=== PATIENT | male | born 1955 | race Caucasian/White ===

== ENCOUNTER 2017-11-19 11:55 | Inpatient (IN) | payer BC ==
[2017-11-19] MEDS ORDERED: Lidocaine 1% (PF) 30 ML VIAL ONE (12:19)
[2017-11-19 12:21] LABS: Mean Corpuscular HGB CONC 34.4 g/dL (32.0-36.0); Mean Corpuscular Hemoglobin 29.3 pg (27.0-31.0); Mean Corpuscular Volume 85.1 fl (80.0-94.0); Mean Platelet Volume 7.1 fL (7.4-10.4); Platelet Count 377 thou/uL (130-400); RBC Distribution Width 11.4 % (11.5-14.5); Red Blood Cell (RBC) Count 5.79 mill/uL (4.70-6.10); White Blood Cell (WBC) Count 12.8 thou/uL (4.8-10.8)
[2017-11-19] MEDS ORDERED: Diazepam 5 MG TAB ONE (12:24)
[2017-11-19 12:27] LABS: PTT 29.2 SEC (22.9-36.1); Prothrombin Time 13.1 SEC (12.0-14.7)
[2017-11-19 12:40] LABS: ALT (SGPT) 26 U/L (8-55); AST (SGOT) 19 U/L (5-34); Albumin 4.4 g/dL (3.5-5.0); Alkaline Phosphatase 95 U/L (40-150); Anion Gap 12 mmol/L (10-20); BUN (Urea Nitrogen) 14 mg/dL (8.4-25.7); Bilirubin, Total 0.6 mg/dL (0.2-1.2); Calc. Creatinine Clearance 0 mL/min (70-130); Calcium 9.6 mg/dL (7.8-10.44); Carbon Dioxide 29 mmol/L (22-29); Cardiac Risk 5.1 (Less than 4.5); Chloride 98 mmol/L (98-107); Cholesterol 197 mg/dl (< 200 Desired); Estimated GFR-MDRD 66; Globulin 3.4 g/dL (2.4-3.5); Glucose 122 mg/dL (70-105); HDL Cholesterol 39 mg/dL (>60 Neg Risk); LDL Cholesterol, Calculated 107 mg/dL; Potassium 4.1 mmol/L (3.5-5.1); Protein, Total 7.8 g/dL (6.0-8.3); Sodium 135 mmol/L (136-145); Triglycerides 255 mg/dL (Less than 150)
[2017-11-19 12:41] LABS: Lymphocytes 20 % (21-51); Monocytes 7 % (0-10); Reactive Lymphocytes 6 % (0-10)
[2017-11-19] MEDS ORDERED: Midazolam HCl 2 mg/2 ml Vial ONE (12:49)
[2017-11-19] MEDS ORDERED: Fentanyl 250 MCG/5 ML VIAL ONE (12:49)
[2017-11-19] MEDS ORDERED: Heparin 10,000 UNITS/1 ML VIAL ONE (12:51)
[2017-11-19] MEDS ORDERED: Nitroglycerin 100MG/250ML BOT 250 ML ONE (12:51)
[2017-11-19] MEDS ORDERED: Verapamil 5 MG/2 ML VIAL ONE (12:51)
[2017-11-19 13:17] LABS: Band 1 % (5-11)
[2017-11-19 13:18] LABS: Neutrophil 66 % (42-75)
[2017-11-19 13:19] LABS: PLT Morphology Comment Appears Adequate
[2017-11-19 13:20] LABS: RBC Morphology Normal
[2017-11-19] MEDS ORDERED: Acetaminophen/Codeine 30-300mg Tablet PO PRN ×2 (14:46)
[2017-11-19] MEDS ORDERED: Nitroglycerin 0.4 MG TAB (25 Tab Bottle) SL PRN (14:46)
[2017-11-19] MEDS ORDERED: traMADol HCl 50 MG TAB PO PRN (14:46)
[2017-11-19] MEDS ORDERED: Sodium Chloride 0.9% 1,000 ML IV SCH (14:46)
[2017-11-19] MEDS ORDERED: Iopamidol 370 76% 100 ML VIAL ONE (16:46)
[2017-11-19 19:45] VITALS: BMI 28.6
--- NOTE | 2017-11-19 22:07 | CON ---
DATE OF CONSULTATION: 11/19/2017 REQUESTING PHYSICIAN: Oscar Robin M.D. PRIMARY PHYSICIAN: Shay Llanos M.D. CHIEF COMPLAINT: Asymptomatic ectopy. HISTORY OF PRESENT ILLNESS: The patient is a 62-year-old white man with hypertension. On a recent checkup he was noted to have frequent ectopy and an EKG demonstrated Q-waves and the absence of R waves in leads V2 through V6 consistent with an anterior myocardial infarction in the past. In retrospect, the patient has had some vague chest pain associated with some shortness of breath on exertion that has been going on for about 6 months, but he does not remember any distinct episode of severe pain that even in retrospect would suggest an infarction that he had mistaken for some other problem. Outpatient stress testing suggested an LVEF of less than 20% associated with scar and cardiac catheterization today demonstrates severe three-vessel coronary artery disease and confirms severely reduced LV function. 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 The patient denies any diabetes. HOME MEDICATIONS: Losartan 100 mg/hydrochlorothiazide 12.5 mg once a day, baby aspirin. He has recently been started on sublingual nitroglycerin p.r.n. ALLERGIES: He denies any medical allergies. SOCIAL HISTORY: He has never smoked. FAMILY HISTORY: Significant for his father having had coronary artery disease manifest in his 50s. REVIEW OF SYSTEMS: Negative for any eye, speech, facial, or extremity symptoms to suggest TIAs. Negative for any orthopnea. Negative for any PND. Negative for any change in some minimal nocturia. PHYSICAL EXAMINATION: GENERAL: He is a healthy-appearing man in no distress. VITAL SIGNS: Heart rate is 94, blood pressure 119/80, height is 6 feet tall, weight is 214 pounds. HEENT: He has no xanthelasma. NECK: No JVD, no carotid bruits. LUNGS: Chest is clear to auscultation. CARDIOVASCULAR: He has regular rate and rhythm without murmur or gallop. ABDOMEN: Soft and nontender. EXTREMITIES: He has easily palpable radial pulses bilaterally. I was able to feel very strong right posterior tibial, but I was not able to appreciate a left posterior tibial or either dorsalis pedis pulse. There is no clubbing, cyanosis or edema. NEUROLOGIC: Grossly nonfocal. LABORATORY DATA: Showed white count of 10.1, hemoglobin 16.5, hematocrit 48.3, platelets 346,000. PT was 13.1, INR 1.0. Electrolytes were normal. Glucose 122, BUN 14, creatinine 1.13. LFTs were normal. Albumin is 4.4, calcium is 9.6. His cardiac catheterization shows right dominant system. He has normal left main. He has a subtotal ostial occlusion in his LAD, but of note, flow through the LAD is very sluggish when compared to the circumflex, for a while it can be seen almost all the way out to the apex. It is a very small caliber vessel and it is not clear if it is truly a small vessel or if it simply underfilled. He has about a 50% or 60% ostial circumflex lesion and then a very high-grade approximately 95% lesion in an OM1. He has had about a 95% or better mid right coronary lesion. I am not able to appreciate any collateral filling of the LAD from the right-sided ejection, LVEF by my estimate would be in the 10 or 15 perhaps as much as 20% range with akinesis of the entire anterior wall. I think the lateral wall, probably moves reasonably well. The inferior wall appears hypokinetic, measured LVEDP was 11. LV pressure was 130 systolic and aortic pressure on pullback was 119/80. His EKG is as described above. IMPRESSION AND RECOMMENDATIONS: I spent considerable time explaining the anatomy and some of the physiology and the management concerns with the patient and his .Anatomically I am not sure that the LAD is graftable because of its small size. It may simply be an underfilled vessel, but it could also be essentially a chronically occluded vessel without much lumen. The circumflex and right coronary vessels technically are rather straightforward. The biggest concern for me is the low ejection fraction and the akinetic anterior wall that goes along with Q-waves and absence of R waves on the EKG I suspect that his anterior wall is not viable making grafting that a moot point,. It also raises the specter of minimal benefit from revascularization with respect to improvement in ejection fraction. It would probably be worthwhile doing a formal viability study to see if there is any potential for the anterior wall and/or septum to improve with revascularization, but unless he gets significant improvement in contractility on medical management. I would be reluctant to pursue surgical revascularization at a [facility] such as ours even if there is the potential for eventual benefit from revascularization. SENAIT
[2017-11-20] MEDS ORDERED: Aspirin 81 mg Enteric Coated Tablet PO SCH (09:00)
[2017-11-20] MEDS ORDERED: Losartan 25 MG TAB PO SCH (09:00)
[2017-11-20] MEDS ORDERED: Hydrochlorothiazide 25 MG TAB PO SCH (09:00)
[2017-11-20] MEDS ORDERED: Carvedilol 3.125 MG TAB PO SCH ×3 (09:35→17:00)
[2017-11-20 10:11] LABS: Hemoglobin A1c 5.4 % (4.0-6.0)
[2017-11-20 10:18] LABS: Anion Gap 12 mmol/L (10-20); BUN (Urea Nitrogen) 13 mg/dL (8.4-25.7); Calc. Creatinine Clearance 101 mL/min (70-130); Calcium 9.1 mg/dL (7.8-10.44); Carbon Dioxide 26 mmol/L (22-29); Chloride 103 mmol/L (98-107); Estimated GFR-MDRD 73; Glucose 143 mg/dL (70-105); Potassium 3.7 mmol/L (3.5-5.1); Sodium 137 mmol/L (136-145)
[2017-11-20 12:09] VITALS: BP 147/82; TEMP 98.1
[2017-11-20] MEDS ORDERED: Rosuvastatin 20 MG TAB PO SCH (21:00)
--- NOTE | 2017-12-23 19:27 | EKG ---
Test Reason : PREOP Blood Pressure : / mmHG Vent. Rate : 093 BPM Atrial Rate : 093 BPM P-R Int : 158 ms QRS Dur : 106 ms QT Int : 388 ms P-R-T Axes : 044 -36 078 degrees QTc Int : 482 ms Sinus rhythm with frequent Premature ventricular complexes Left axis deviation Voltage criteria for left ventricular hypertrophy Cannot rule out Septal infarct , age undetermined Abnormal ECG No previous ECGs available Confirmed by DR. Guy PULIDO ([id number]) on 12/23/2017 7:26:58 PM Referred By: DARRIUS Confirmed By:DR. Guy PULIDO
== END 2017-11-20 13:25 | disposition home or self-care (01) | DRG 287 ==
LOC: CCL 11:55 → 2NO 14:36
PROVIDERS: ADMIT Internal Medicine Cardiovascular Disease; ATTEND Internal Medicine Cardiovascular Disease
PROC: 4A023N7 Measurement of Cardiac Sampling and Pressure, Left Heart, Percutaneous Approach (ICD-10-PCS; principal; 2017-11-19)
PROC: B2111ZZ Fluoroscopy of Multiple Coronary Arteries using Low Osmolar Contrast (ICD-10-PCS; 2017-11-19)
PROC: B2151ZZ Fluoroscopy of Left Heart using Low Osmolar Contrast (ICD-10-PCS; 2017-11-19)
DX: I25.10 Atherosclerotic heart disease of native coronary artery without angina pectoris (principal); I10 Essential (primary) hypertension; R94.39 Abnormal result of other cardiovascular function study; I49.49 Other premature depolarization
CPT/HCPCS: 36415; 80048; 80053; 80061; 83036; 85007; 85027; 85610; 85730; 93005; 93010; 93458; 93798; 99152; A4216; C1769; J1644; J2001; J2250; J3010

== ENCOUNTER 2018-03-18 11:15 | Inpatient (IN) | payer BC ==
[2018-03-18 12:40] LABS: Hemoglobin 15.4 g/dL (14.0-18.0); Mean Corpuscular HGB CONC 34.2 g/dL (32.0-36.0); Mean Corpuscular Hemoglobin 29.2 pg (27.0-31.0); Mean Corpuscular Volume 85.4 fL (78.0-98.0); Mean Platelet Volume 7.6 fL (7.4-10.4); Platelet Count 283 thou/uL (130-400); RBC Distribution Width 11.9 % (11.5-14.5); Red Blood Cell (RBC) Count 5.27 mill/uL (4.70-6.10); White Blood Cell (WBC) Count 8.2 thou/uL (4.8-10.8)
[2018-03-18 13:00] LABS: Anion Gap 8 mmol/L (10-20); BUN (Urea Nitrogen) 15 mg/dL (8.4-25.7); Calc. Creatinine Clearance 0 mL/min (70-130); Calcium 9.3 mg/dL (7.8-10.44); Carbon Dioxide 28 mmol/L (22-29); Chloride 103 mmol/L (98-107); Estimated GFR-MDRD 59; Glucose 112 mg/dL (70-105); Sodium 135 mmol/L (136-145)
[2018-03-21] MEDS ORDERED: CEFAZOLIN/Water 2 GM/20 ML SYRINGE ONE (06:02)
[2018-03-21] MEDS ORDERED: Midazolam HCl 5 mg/5 ml Vial ONE (06:44)
[2018-03-21] MEDS ORDERED: Fentanyl 250 MCG/5 ML VIAL ONE (06:44)
[2018-03-21] MEDS ORDERED: Heparin 10,000 UNITS/1 ML VIAL 30,000 UNITS in Sodium Chloride 0.9% 1,000 ML FS SCH (07:00)
[2018-03-21] MEDS ORDERED: Midazolam HCl 2 mg/2 ml Vial ONE (07:05)
[2018-03-21] MEDS ORDERED: Albumin 5% 500 ML ONE (07:09)
[2018-03-21] MEDS ORDERED: Phenylephrine HCL 10 MG/ML VIAL ONE (07:18)
[2018-03-21] MEDS ORDERED: Milrinone 10 MG/10 ML VIAL ONE (07:18)
[2018-03-21] MEDS ORDERED: Norepinephrine 8 MG/0.9% NS 250 ML ONE (07:18)
[2018-03-21] MEDS ORDERED: Hetastarch 6% 500 ML 500 ML IVPB PRN (07:34)
[2018-03-21] MEDS ORDERED: Mag-Al 1200 mg/1200 mg/30 ML UDCUP PO PRN (07:34)
[2018-03-21] MEDS ORDERED: Ondansetron HCl/PF 4 MG/2 ML Vial IVP PRN (07:34)
[2018-03-21] MEDS ORDERED: Potassium Chloride 20 MEQ/100 ML PREMIX BAG IVPB PRN (07:34)
[2018-03-21] MEDS ORDERED: Promethazine HCl 25 MG/ML VIAL IM PRN (07:34)
[2018-03-21] MEDS ORDERED: Guaifenesin DM 100-10/5 ML UDCUP PO PRN (07:34)
[2018-03-21] MEDS ORDERED: Acetaminophen 325 MG TAB PO PRN (07:34)
[2018-03-21] MEDS ORDERED: Post-Op Insulin Drip Protocol IVPB ONE (07:34)
[2018-03-21] MEDS ORDERED: hydrALAZINE 20 MG/ML VIAL SLOW IVP PRN (07:34)
[2018-03-21] MEDS ORDERED: Bisacodyl 5 MG TAB PO PRN (07:34)
[2018-03-21] MEDS ORDERED: Bisacodyl 10 MG SUPP PR PRN (07:34)
[2018-03-21] MEDS ORDERED: Fentanyl 100 MCG/2 ML VIAL SLOW IVP PRN (07:34)
[2018-03-21] MEDS ORDERED: Nitroglycerin 50 MG/250 ML BOT 250 ML IVPB PRN (07:34)
[2018-03-21] MEDS ORDERED: Norepinephrine 8 MG/0.9% NS 250 ML IVPB PRN (07:34)
[2018-03-21] MEDS ORDERED: Dextrose 50% Abboject 50 ML SYRINGE SLOW IVP PRN (07:53)
[2018-03-21] MEDS ORDERED: Insulin Regular 300 UNITS/3 ML VIAL SC PRN (07:53)
[2018-03-21] MEDS ORDERED: Dextrose 5% in Water 1,000 ML IV PRN (07:53)
[2018-03-21] MEDS: Famotidine/PF 20 mg/2ml Vial SLOW IVP SCH ×2 (09:00→20:41)
[2018-03-21 13:02] LABS: Hemoglobin 13.5 g/dL (14.0-18.0); Mean Corpuscular HGB CONC 34.1 g/dL (32.0-36.0); Mean Corpuscular Hemoglobin 29.2 pg (27.0-31.0); Mean Corpuscular Volume 85.7 fL (78.0-98.0); Mean Platelet Volume 7.4 fL (7.4-10.4); Platelet Count 209 thou/uL (130-400); RBC Distribution Width 11.9 % (11.5-14.5); Red Blood Cell (RBC) Count 4.63 mill/uL (4.70-6.10); White Blood Cell (WBC) Count 20.1 thou/uL (4.8-10.8)
[2018-03-21 13:10] LABS: INR-International Normal Ratio 1.4; PTT 32.1 SEC (22.9-36.1)
[2018-03-21 13:13] LABS: CO2 Tension 31.8 mmHg (35.0-45.0); O2 Tension (PaO2) 222.8 mmHg (> 80.0); pH, Arterial 7.43 (7.35-7.45)
[2018-03-21 13:14] LABS: Actual Bicarbonate (HCO3a) 20.5 mEq/L (22-28); Base Excess (BEa) -2.8 mEq/L (-2.0 to +3.0); Calcium, Ionized 1.1 mmol/L (1.12-1.30); Hemoglobin (Hb) 13.9 g/dL (14.0-18.0); Puncture Site ALINE
[2018-03-21 13:21] LABS: Anion Gap 9 mmol/L (10-20); BUN (Urea Nitrogen) 14 mg/dL (8.4-25.7); Calc. Creatinine Clearance 107 mL/min (70-130); Calcium 7.8 mg/dL (7.8-10.44); Carbon Dioxide 21 mmol/L (22-29); Chloride 110 mmol/L (98-107); Estimated GFR-MDRD 80; Glucose 170 mg/dL (70-105); Potassium 4.3 mmol/L (3.5-5.1); Sodium 136 mmol/L (136-145)
[2018-03-21 13:25] LABS: Band 9 % (5-11); Lymphocytes 15 % (21-51); MDiff Complete? YES; Monocytes 2 % (0-10); Neutrophil 74 % (42-75); PLT Morphology Comment Appears Adequate
[2018-03-21] MEDS: Sodium Chloride 0.9% 1,000 ML IV SCH (13:29)
--- NOTE | 2018-03-21 14:11 | RAD ---
SINGLE VIEW CHEST: HISTORY: Status post open heart surgery. COMPARISON: 03/18/2018 FINDINGS: Single view of the chest shows a normal sized cardiomediastinal silhouette. The patient is status po st sternotomy. There is an endotracheal tube with its tip between the clavicles. A left subclavian central venous catheter is seen with its tip in the superior vena cava. There are stable scattered n odules in the right lung. No pneumothorax is seen. Mediastinal drains are present. IMPRESSION: 1. Appropriate position of lines and tubes status post sternotomy. 2. Right-sided pulmonary nodules. POS: [facility]
[2018-03-21] MEDS ORDERED: Mannitol 12.5 GM/50 ML ONE (14:40)
[2018-03-21] MEDS ORDERED: Nitroglycerin 50 MG/250 ML BOT ONE (14:40)
[2018-03-21] MEDS ORDERED: Sodium Bicarb 50 MEQ/50 ML Abboject 8.4% SYRINGE ONE (14:40)
[2018-03-21] MEDS ORDERED: ePHEDrine/0.9% NaCl/PF SYRINGE 50 mg/10 ml ONE (14:40)
[2018-03-21] MEDS ORDERED: Papaverine 60 MG/2 ML VIAL ONE (14:40)
[2018-03-21] MEDS ORDERED: Protamine Sulfate 250 MG/25 ML VIAL ONE (14:40)
[2018-03-21] MEDS ORDERED: Lidocaine 2% PF 100 mg/5 ml Syringe ONE (14:40)
[2018-03-21] MEDS ORDERED: Magnesium 5 GM/10 ML VIAL ONE (14:40)
[2018-03-21] MEDS ORDERED: Calcium Chloride 1 GM/10 ML Abboject SYRINGE ONE (14:40)
[2018-03-21] MEDS ORDERED: Potassium Chlo 10 mEq/5 ml Syr ONE (14:40)
[2018-03-21] MEDS ORDERED: Cardioplegic Soln 1,000 ML BAG ONE (14:40)
[2018-03-21] MEDS ORDERED: Heparin 30,000 units/30 ml VIAL ONE (14:40)
[2018-03-21] MEDS ORDERED: Aminocaproic Acid 5 GM/20 ML VIAL ONE (14:40)
[2018-03-21] MEDS ORDERED: Vecuronium 10 MG VIAL ONE (14:40)
[2018-03-21] MEDS ORDERED: PHENYLEPHRINE-NS 100 MCG/ML 10 ML SYRINGE ONE (14:40)
[2018-03-21] MEDS ORDERED: Heparin 5,000 UNITS/ML VIAL ONE (14:40)
--- NOTE | 2018-03-21 15:34 | OP ---
DATE OF PROCEDURE: 03/21/2018 PROCEDURE PERFORMED: Coronary artery bypass grafting x3 with left internal mammary artery to the LAD and reverse greater saphenous vein grafts from the aorta to the first obtuse marginal and from the a kailee to the PDA. A 5-British right common femoral artery arterial line placement with ultrasound timur paz. PREOPERATIVE DIAGNOSIS: Coronary artery disease with ischemic cardiomyopathy. POSTOPERATIVE DIAGNOSIS: Coronary artery disease with ischemic cardiomyopathy. SURGEON: Joe Desai M.D. ADMITTING CLERK: Danny. ANESTHESIA: General endotracheal anesthesia. INDICATIONS: The patient is a 62-year-old man with ventricular ectopy noted on an EKG that was part of a routine exam investigating that ultimately led to the discovery of severe 3-vessel coronary dise ase with markedly decreased LV function with essentially akinetic anterior wall. While nuclear studi es were equivocal, cardiac MRI suggested viability of the anterior wall. He is now taken to the oper ating room in stable condition for coronary revascularization. FINDINGS: Pump time 68 minutes. CROSS-CLAMP TIME: 34 minutes. A good quality MARYURI. The saphenous vein was of good size, but somewhat thin walled. The LAD was abou t a 1.5 mm sclerotic vessel. The first obtuse marginal was about 2.5 mL with scattered plaque. The PDA was about 2 mm vessel with a small island of plaque in its mid portion. The pericardium was clos ed. NARRATIVE REPORT: After informed consent was obtained, the patient was taken to the operating room a nd placed in supine position on the operating table. After the induction of general anesthesia, the patient's lower extremities were ultrasonographically examined. The greater saphenous vein was ident ified and mapped out on the left lower extremity. The common femoral bifurcations were identified bi laterally and were marked. The patient's left upper chest was prepped and draped in sterile fashion and the patient was placed in Trendelenburg by the Seldinger technique. A triple-lumen central line kit was used to place a left subclavian central line. All 3 ports easily aspirated and flushed. The line was secured. The patient's torso, groins, and lower extremities were prepped and draped in mckenna rile fashion. Saphenous vein was exposed just above the left knee and then endoscopically harvested up to the groin. It was prepared for use as a graft. A 5-British sheath kit was used to cannulate th e right common femoral artery by the Seldinger technique. The wire and catheter easily passed and th ere was good return from the catheter, which easily flushed. It was secured with suture. A median s ternotomy was performed. The left MARYURI was mobilized as the pedicle from the level of xiphoid to the level of subclavian vein for next pleural exposure. One small rent in the pleura inferiorly and ant eriorly was repaired over a Valsalva maneuver with fine Prolene. The patient was heparinized. The m ammary was ligated and divided distally. There was good flow through the mammary, which was then ins tilled intraluminally with papaverine solution and the mammary bed was inspected for hemostasis. The reflections of the pleura at the apex were mobilized. The MARYURI retractor was placed with a Coffman ret ractor. The pericardium was opened and marsupialized. The aorta was palpated and was soft. A doubl e-concentric pursestring of #2 Ethibond was placed in the ascending aorta, just beyond the pericardia l reflection. A single pursestring was placed in the right atrial appendage. Aortic and venous abiel kal were inserted and secured by their pursestrings. The plane between the aorta and the pulmonary a rtery was developed. Cardiopulmonary bypass was instituted and the patient was systemically cooled. The heart was examined and the vessels to be bypassed were identified. A longitudinal slit was made in the pericardium anterior to the left phrenic nerve through which the mammary pedicle could be pas sed and the aortic crossclamp was applied and cardioplegia was administered through an aortic root ne edle. When arrest had been achieved, attention was turned to the PDA. There was very small island o f plaque visible about 3 cm beyond the origin of the PDA. An arteriotomy was made bridging across th ere. The saphenous vein was reversed and anastomosed there end-to-side with running Prolene suture. The anastomosis was tested by flushing cold cardioplegic down the graft. Attention was then turned to the circumflex system. There were multiple islands of hard plaque in the large OM1, the OM2, and OM3 posterolaterally where there were accessible and the epicardial surface were tiny. The OM1 was o pened distally and saphenous vein was anastomosed to it. The LAD was then opened at about the juncti on of the middle and distal thirds. The mammary is anastomosed to it with running 7-0 Prolene suture constructing the heel and the toe of the anastomosis over a 1 mm probe. The mammary pedicle was tac ked to the epicardium. The aortic crossclamp was replaced with partial occluding clamp and aortotomy was made in the ascending aorta with a scalpel and punch incorporating the root needle site into one of the aortotomies. The PDA graft was brought along the right side of the heart and anastomosed to the more proximal aortotomy. The OM graft was anastomosed to the more distal aortotomy. Partial occ luding clamp was removed and the vein grafts were deaired. The bulldog was removed from them. The a nastomoses were inspected for hemostasis. The posterior pericardial drain was brought out through a separate incision and secured with suture. Right atrial and right ventricular temporary epicardial p acing wires were placed. The patient was then easily from cardiopulmonary bypass. The aor tic and venous cannulae were removed and the pursestring secured. Protamine was administered. When hemostasis was adequate, an anterior mediastinal drain was placed. The pericardium was easily closed over with running Vicryl. The sternum was reapproximated with #7 stainless steel wires. Fascia joseph sed over the wires with heavy Vicryl. Subcutaneous tissue was irrigated and reapproximated and the s kin was closed with Vicryl subcuticular stitch. The wounds were dressed and the patient was taken to the intensive care unit in stable condition.
[2018-03-21 15:35] VITALS: BMI 29.3
[2018-03-21] MEDS ORDERED: Metoclopramide HCl 10 MG/2 ML VIAL IVP SCH (16:30)
[2018-03-21] MEDS ORDERED: Acetaminophen 1,000 MG in Premix Bag 1 BAG IVPB SCH (16:30)
[2018-03-21] MEDS: Fentanyl 100 MCG/2 ML VIAL SLOW IVP PRN (16:40)
[2018-03-21 17:09] LABS: Actual Bicarbonate (HCO3a) 20.3 mEq/L (22-28); Base Excess (BEa) -4.1 mEq/L (-2.0 to +3.0); CO2 Tension 34.9 mmHg (35.0-45.0); Hemoglobin (Hb) 12.9 g/dL (14.0-18.0); O2 Tension (PaO2) 176.8 mmHg (> 80.0); pH, Arterial 7.38 (7.35-7.45)
[2018-03-21 17:10] LABS: ALV-art Gradient 64.775 (0-20); Puncture Site ALINE
[2018-03-21 17:16] LABS: Hemoglobin 12.9 g/dL (14.0-18.0)
[2018-03-21 17:30] LABS: Potassium 4.4 mmol/L (3.5-5.1)
[2018-03-22] MEDS: HYDROcodone/Acetaminophen 5/325 mg Tablet PO PRN ×4 (00:28→17:18)
[2018-03-22] MEDS: Metoclopramide HCl 10 MG/2 ML VIAL IVP SCH ×3 (00:28→12:11)
[2018-03-22] MEDS: Sodium Chloride 0.9% 1,000 ML IV SCH (00:42)
[2018-03-22] MEDS: Fentanyl 100 MCG/2 ML VIAL SLOW IVP PRN ×3 (01:46→07:57)
[2018-03-22 05:08] LABS: #Lymphocytes 2.2 thou/uL (1.20-3.40); #Monocytes 1.9 thou/uL (0.11-0.59); #Neutrophils 11.5 thou/uL (1.40-6.50); %Basophils 0.2 % (0.0-1.0); %Lymphocytes 13.9 % (21.0-51.0); %Monocytes 12.4 % (0.0-10.0); %Neutrophils 73.4 % (42.0-75.0); Hemoglobin 12.8 g/dL (14.0-18.0); Mean Corpuscular HGB CONC 33.6 g/dL (32.0-36.0); Mean Corpuscular Hemoglobin 28.9 pg (27.0-31.0); Mean Platelet Volume 7.8 fL (7.4-10.4); Platelet Count 250 thou/uL (130-400); RBC Distribution Width 12.2 % (11.5-14.5); Red Blood Cell (RBC) Count 4.43 mill/uL (4.70-6.10); White Blood Cell (WBC) Count 15.6 thou/uL (4.8-10.8)
[2018-03-22 05:22] LABS: Anion Gap 10 mmol/L (10-20); BUN (Urea Nitrogen) 15 mg/dL (8.4-25.7); Calc. Creatinine Clearance 121 mL/min (70-130); Calcium 8.2 mg/dL (7.8-10.44); Carbon Dioxide 21 mmol/L (22-29); Chloride 110 mmol/L (98-107); Estimated GFR-MDRD 86; Glucose 147 mg/dL (70-105); Sodium 137 mmol/L (136-145)
--- NOTE | 2018-03-22 07:02 | PDOC.CTH ---
Cardiology Progress Note - Subjective Doing well. Extubated. No complaints. Off pressors. Coreg added. - Objective Vital Signs Temp Pulse Resp Pulse Ox 03/22/18 04:02 95 03/22/18 04:00 98.2 F 03/22/18 02:00 98.0 F 03/22/18 00:00 98.0 F 96 03/21/18 20:00 97.9 F 84 24 H 100 Admit Weight 3.478 oz Weight 211 lb 10.3 oz 03/21/18 03/22/18 03/23/18 06:59 06:59 06:59 Intake Total 2253.2 Output Total 2845 Balance -591.8 - Physical Examination General/Neuro: alert & oriented x3, NAD Neck: carotid US brisk, no JVD present Lungs: CTA, unlabored respirations Heart: RRR Abdomen: no HSM, NT/ND, soft Extremities: + femoral B - Labs Result Diagrams: 03/22/18 04:38 03/22/18 04:38 - Assessment/Plan 1. Severe CAD 2. Ischemic CM 3. s/p CABG Add coreg On statin PT and IS
[2018-03-22] MEDS ORDERED: Mineral Oil ENEMA PR PRN (07:52)
[2018-03-22] MEDS ORDERED: Bisacodyl 5 MG TAB PO PRN (07:52)
[2018-03-22] MEDS ORDERED: Mag-Al 1200 mg/1200 mg/30 ML UDCUP PO PRN (07:52)
[2018-03-22] MEDS ORDERED: diphenhydrAMINE 25 MG CAP PO PRN (07:52)
[2018-03-22] MEDS ORDERED: Bisacodyl 10 MG SUPP PR PRN (07:52)
[2018-03-22] MEDS ORDERED: Guaifenesin DM 100-10/5 ML UDCUP PO PRN (07:52)
[2018-03-22] MEDS ORDERED: Nitroglycerin 0.4 MG TAB (25 Tab Bottle) SL PRN (07:52)
[2018-03-22] MEDS ORDERED: Artificial Tears 18 DROP/0.9 ML EA EYE PRN (07:52)
[2018-03-22] MEDS ORDERED: Zolpidem Tartrate 5 MG TAB PO PRN (07:52)
[2018-03-22] MEDS: Furosemide 40 MG TAB PO SCH ×2 (08:01→14:13)
[2018-03-22] MEDS ORDERED: Famotidine 20 MG TAB PO SCH (09:00)
--- NOTE | 2018-03-22 09:28 | RAD ---
CHEST ONE VIEW: History: Heart surgery. Follow up. Comparison: 03-21-18 FINDINGS: Cardiac silhouette magnified and upper limits of normal in size. Pulmonary vasculature is upper limit s of normal. Bibasilar parenchymal opacities have progressed slightly. Mediastinum midline with post- operative changes. Left subclavian central venous catheter remains in place. Endotracheal catheter an d nasogastric tube no longer visible. Radiopaque drain overlies the mediastinum. No residual pneumoth orax. IMPRESSION: 1. Interval removal of endotracheal catheter and nasogastric tube. 2. Slight interval increase in bibasilar atelectasis. 3. Otherwise stable post-operative appearance of the chest. POS: [facility]
[2018-03-22] MEDS: Carvedilol 6.25 MG TAB PO SCH ×2 (09:31→17:17)
--- NOTE | 2018-03-22 12:46 | EKG ---
Test Reason : CABG Blood Pressure : / mmHG Vent. Rate : 080 BPM Atrial Rate : 080 BPM P-R Int : 180 ms QRS Dur : 098 ms QT Int : 426 ms P-R-T Axes : 040 -35 014 degrees QTc Int : 491 ms Normal sinus rhythm Left axis deviation Nonspecific ST abnormality Anterior infarct (cited on or before 19-NOV-2017) Abnormal ECG Confirmed by EBONY TAVAREZ ([id number]) on 03/22/2018 12:46:29 PM Referred By: BEV Confirmed By:EBONY TAVAREZ
[2018-03-22] MEDS: Rosuvastatin 10 MG TAB PO SCH (20:38)
[2018-03-23 05:43] LABS: #Lymphocytes 2.5 thou/uL (1.20-3.40); #Monocytes 1.9 thou/uL (0.11-0.59); #Neutrophils 12.8 thou/uL (1.40-6.50); %Basophils 0.1 % (0.0-1.0); %Lymphocytes 14.5 % (21.0-51.0); %Neutrophils 74.3 % (42.0-75.0); Hemoglobin 11.2 g/dL (14.0-18.0); Mean Corpuscular HGB CONC 34.7 g/dL (32.0-36.0); Mean Corpuscular Hemoglobin 30.1 pg (27.0-31.0); Mean Corpuscular Volume 86.6 fL (78.0-98.0); Mean Platelet Volume 7.8 fL (7.4-10.4); Platelet Count 200 thou/uL (130-400); Red Blood Cell (RBC) Count 3.71 mill/uL (4.70-6.10); White Blood Cell (WBC) Count 17.2 thou/uL (4.8-10.8)
[2018-03-23 06:04] LABS: Anion Gap 9 mmol/L (10-20); BUN (Urea Nitrogen) 16 mg/dL (8.4-25.7); Calc. Creatinine Clearance 111 mL/min (70-130); Calcium 8.7 mg/dL (7.8-10.44); Carbon Dioxide 26 mmol/L (22-29); Chloride 104 mmol/L (98-107); Estimated GFR-MDRD 80; Glucose 141 mg/dL (70-105); Potassium 4.1 mmol/L (3.5-5.1); Sodium 135 mmol/L (136-145)
--- NOTE | 2018-03-23 06:42 | PDOC.CTH ---
Cardiology Progress Note - Subjective Doing well. transferred from ICU to tele. CT still in place - Objective Vital Signs Temp Pulse Resp BP BP Pulse Ox 03/23/18 04:00 98.7 F 98 18 131/64 94 L 03/22/18 20:33 97.7 F 96 16 127/62 96 Admit Weight 3.478 oz Weight 211 lb 03/21/18 03/22/18 03/23/18 06:59 06:59 06:59 Intake Total 2253.2 230 Output Total 2845 570 Balance -591.8 -340 - Physical Examination General/Neuro: alert & oriented x3, NAD Neck: carotid US brisk, no JVD present Lungs: CTA, unlabored respirations Heart: RRR Abdomen: no HSM, NT/ND, soft Extremities: + femoral B - Labs Result Diagrams: 03/23/18 05:20 03/23/18 05:20 - Assessment/Plan 1. Severe CAD 2. Ischemic CM 3. s/p CABG Increase coreg to TID Add losartan 25mg QAM PT and IS Na and fluid restrict lifevest
--- NOTE | 2018-03-23 08:29 | RAD ---
SINGLE VIEW CHEST: Date: 03/23/18 COMPARISON: 03/22/18. HISTORY: Status post open heart surgery. FINDINGS: Single view of the chest shows an enlarged but stable cardiomediastinal silhouette. The patient is st atus post sternotomy. The central venous catheter and mediastinal drains are unchanged in position. T here is a small left pleural effusion. No significant change has occurred compared to the prior exam. IMPRESSION: Stable exam. POS: [facility]
[2018-03-23] MEDS: Losartan 25 MG TAB PO SCH (09:04)
[2018-03-23] MEDS: Carvedilol 6.25 MG TAB PO SCH ×3 (09:04→20:31)
[2018-03-23] MEDS: Rosuvastatin 10 MG TAB PO SCH (20:30)
[2018-03-24 05:42] LABS: #Basophils 0.1 thou/uL (0.0-0.2); #Lymphocytes 3.6 thou/uL (1.20-3.40); #Monocytes 1.9 thou/uL (0.11-0.59); #Neutrophils 12.6 thou/uL (1.40-6.50); %Basophils 0.3 % (0.0-1.0); %Eosinophils 0.2 % (0.0-10.0); %Lymphocytes 19.8 % (21.0-51.0); %Monocytes 10.4 % (0.0-10.0); %Neutrophils 69.4 % (42.0-75.0); Hemoglobin 11.1 g/dL (14.0-18.0); Mean Corpuscular HGB CONC 34.8 g/dL (32.0-36.0); Mean Corpuscular Hemoglobin 30.1 pg (27.0-31.0); Mean Corpuscular Volume 86.5 fL (78.0-98.0); Mean Platelet Volume 7.7 fL (7.4-10.4); Platelet Count 252 thou/uL (130-400); Red Blood Cell (RBC) Count 3.68 mill/uL (4.70-6.10); White Blood Cell (WBC) Count 18.1 thou/uL (4.8-10.8)
[2018-03-24 05:54] LABS: Anion Gap 12 mmol/L (10-20); BUN (Urea Nitrogen) 15 mg/dL (8.4-25.7); Calc. Creatinine Clearance 116 mL/min (70-130); Calcium 9.2 mg/dL (7.8-10.44); Carbon Dioxide 26 mmol/L (22-29); Chloride 102 mmol/L (98-107); Estimated GFR-MDRD 84; Glucose 136 mg/dL (70-105); Sodium 136 mmol/L (136-145)
[2018-03-24] MEDS: Carvedilol 6.25 MG TAB PO SCH ×3 (08:43→22:02)
[2018-03-24] MEDS: Furosemide 20 MG TAB PO SCH (08:43)
[2018-03-24] MEDS: Spironolactone 25 MG TAB PO SCH (08:43)
[2018-03-24] MEDS: Losartan 25 MG TAB PO SCH (08:44)
--- NOTE | 2018-03-24 16:58 | PDOC.CTH ---
Cardiology Progress Note - Subjective Patient with c/o hesitancy urinating. He says he is urinating frequently, but having trouble getting flow started. Denies CP, SOB. Mild DESAI. Walked to atrium today. - Objective Vital Signs Temp Pulse Pulse Pulse Resp BP BP 03/24/18 15:35 98.4 F 91 18 03/24/18 12:54 108 H 105 H 135/70 154/74 H 03/24/18 11:24 98.2 F 84 18 03/24/18 09:17 92 106 H 146/60 H 149/69 H 03/24/18 08:41 97.7 F 88 18 03/24/18 05:12 98.6 F 92 18 BP BP Pulse Ox Pulse Ox Pulse Ox 03/24/18 15:35 157/76 H 98 03/24/18 12:54 98 98 03/24/18 11:24 127/59 L 95 03/24/18 09:17 100 97 03/24/18 08:41 154/72 H 95 03/24/18 05:12 137/70 94 L Admit Weight 3.478 oz Weight 211 lb 03/23/18 03/24/18 03/25/18 06:59 06:59 06:59 Intake Total 230 1470 Output Total 570 Balance -340 1470 - Physical Examination General/Neuro: alert & oriented x3 Neck: no JVD present Lungs: other: (decreased BS at bases) Heart: RRR Abdomen: no HSM Extremities: other: (no edema) - Telemetry Telemetry Rhythm: SR - Labs Result Diagrams: 03/24/18 05:26 03/24/18 05:26 - Assessment/Plan 1. Urinary hesitancy - start flomax. Warned patient of orthostatic hypotension s /s. 2. ICMO 3. CAD s/p CABG x 3 4. HTN 5. HLD Continue to increase activity as tolerated.
[2018-03-24] MEDS: Tamsulosin HCl 0.4 MG CAP PO SCH (17:27)
[2018-03-24] MEDS: HYDROcodone/Acetaminophen 5/325 mg Tablet PO PRN (18:21)
[2018-03-24] MEDS: Rosuvastatin 10 MG TAB PO SCH (22:03)
[2018-03-25] MEDS: HYDROcodone/Acetaminophen 5/325 mg Tablet PO PRN ×3 (02:12→21:50)
[2018-03-25 05:47] LABS: #Basophils 0.1 thou/uL (0.0-0.2); #Lymphocytes 3.1 thou/uL (1.20-3.40); #Monocytes 1.3 thou/uL (0.11-0.59); #Neutrophils 7.9 thou/uL (1.40-6.50); %Basophils 0.7 % (0.0-1.0); %Eosinophils 0.3 % (0.0-10.0); %Lymphocytes 24.8 % (21.0-51.0); %Monocytes 10.8 % (0.0-10.0); %Neutrophils 63.4 % (42.0-75.0); Hemoglobin 10.3 g/dL (14.0-18.0); Mean Corpuscular HGB CONC 34.3 g/dL (32.0-36.0); Mean Corpuscular Hemoglobin 29.6 pg (27.0-31.0); Mean Corpuscular Volume 86.2 fL (78.0-98.0); Mean Platelet Volume 7.4 fL (7.4-10.4); Platelet Count 321 thou/uL (130-400); Red Blood Cell (RBC) Count 3.49 mill/uL (4.70-6.10); White Blood Cell (WBC) Count 12.5 thou/uL (4.8-10.8)
[2018-03-25 05:55] LABS: Anion Gap 11 mmol/L (10-20); BUN (Urea Nitrogen) 14 mg/dL (8.4-25.7); Calc. Creatinine Clearance 133 mL/min (70-130); Calcium 9.1 mg/dL (7.8-10.44); Carbon Dioxide 27 mmol/L (22-29); Chloride 102 mmol/L (98-107); Estimated GFR-MDRD Greater than 90; Glucose 123 mg/dL (70-105); Potassium 3.8 mmol/L (3.5-5.1); Sodium 136 mmol/L (136-145)
[2018-03-25] MEDS: Carvedilol 6.25 MG TAB PO SCH ×3 (09:24→21:46)
[2018-03-25] MEDS: Furosemide 20 MG TAB PO SCH (09:24)
[2018-03-25] MEDS: Spironolactone 25 MG TAB PO SCH (09:24)
[2018-03-25] MEDS: Losartan 25 MG TAB PO SCH (09:24)
--- NOTE | 2018-03-25 14:58 | PDOC.CTH ---
Cardiology Progress Note - Subjective c/o trouble urinating still. Straight cath'd last night and 1500cc out. No CP, SOB or DESAI. - Objective Vital Signs Temp Pulse Pulse Pulse Resp BP BP 03/25/18 12:01 98.8 F 80 18 03/25/18 10:43 89 78 145/71 H 150/72 H 03/25/18 10:01 91 106 H 150/70 H 164/75 H 03/25/18 07:26 98.4 F 85 16 03/25/18 04:00 98.6 F 82 14 BP BP Pulse Ox Pulse Ox Pulse Ox 03/25/18 12:01 138/69 95 03/25/18 10:43 99 98 03/25/18 10:01 98 97 03/25/18 07:26 119/65 96 03/25/18 04:00 136/65 95 Admit Weight 3.478 oz Weight 203 lb 12.8 oz 03/24/18 03/25/18 03/26/18 06:59 06:59 06:59 Intake Total 1470 1320 Output Total 1500 Balance 1470 -180 - Physical Examination General/Neuro: alert & oriented x3 Lungs: CTA Heart: RRR Extremities: other: (no edema) - Telemetry Telemetry Rhythm: SR - Labs Result Diagrams: 03/25/18 05:25 03/25/18 05:24 - Assessment/Plan 1. Urinary Retention 2. s/p CABG 3. ICMO Consult urology. Ok for discharge from my standpoint when voiding normalizes.
[2018-03-25] MEDS: Tamsulosin HCl 0.4 MG CAP PO SCH (17:33)
[2018-03-25] MEDS ORDERED: CEFPROZIL 500 MG PO SCH (21:00)
[2018-03-25] MEDS: Cefprozil 250 MG TAB PO SCH (21:47)
[2018-03-25] MEDS: Rosuvastatin 10 MG TAB PO SCH (21:48)
--- NOTE | 2018-03-25 23:02 | CON ---
DATE OF CONSULTATION REQUESTING REPORT: 03/25/2018 DATE OF HOSPITAL ADMISSION: 03/21/2018 REASON FOR CONSULTATION: Postoperative urinary retention. HISTORY OF PRESENT ILLNESS: Mr. Nain Portillo Jr. is a very pleasant 62-year-old white male admitte d on 03/21/2018 due to cardiac arrhythmia and underwent evaluation indicating a need for revasculariz ation, he underwent coronary artery bypass x3 vessels on 03/21/2018. Patient of Dr. Kamari Hardy and postoperatively has been troubled primarily by urinary retention. He has had three catheters in total and has had the retention levels an excess of 1000 mL. Patient reports that he has been la tely having a little bit of obstructive voiding symptoms at home, recently was diagnosed with an elev ated PSA at his primary physician, Dr. Cruz's office. He previously saw Dr. Rodrigues who is no longe r in standard primary care, but is still in practice. Patient reports that he has now a problem with voiding. He also has pain with passage of the catheters. This is a little bit disproportionate to what would ordinarily be experienced. He denies any previous genitourinary evaluation by urologist. Patient has had no previous urologic surgeries. PAST MEDICAL HISTORY: Patient has had some troubles with his left eye, also some orthopedic issues w ith his right knee. Other than this, he has been reasonably healthy. PAST SURGICAL HISTORY: 1. Patient has had left eye surgery x2. 2. Right knee arthroscopy procedure. 3. Laparoscopic cholecystectomy. 4. Coronary artery bypass graft on 03/21/2018 on this hospital admission. FAMILY MEDICAL HISTORY: Patient's father had a history of coronary artery disease and has also had p rostate cancer. Patient's maternal grandfather also had prostate cancer. SOCIAL HISTORY: The patient is a lifelong nonsmoker, he is employed at [employer] and [employer]. He has no history of substance abuse. He does consume alcohol on an occasional basis. ALLERGIES: No known drug allergies. COMPLETE MEDICATION LIST: Includes, 1. [place] 5/325 one-two p.o. q.4-6 hours p.r.n. for pain. 2. Coreg 6.25 mg p.o. t.i.d. 3. Lasix 20 mg p.o. daily. 4. Cozaar 25 mg p.o. daily. 5. Zofran 4 mg IVP q.4 hours p.r.n. 6. Nitrostat 0.4 mg sublingual p.r.n. chest pain. 7. Spironolactone 25 mg p.o. q.a.m. 8. Flomax 0.4 mg p.o. at bedtime started yesterday. 9. Ambien 5 mg p.o. at bedtime. REVIEW OF SYSTEMS: HEAD, EYES, EARS, NOSE, AND THROAT: Negative. Neurologic: Negative. Cardiac: Patient apparently had 2 cardiac events in the past, now has a new fresh coronary artery bypass graft ing. Gastrointestinal: Only positive for history of previous cholecystectomy. No current GI discom fort. No bloody stool. No nausea or vomiting. No bloody emesis. Musculoskeletal: Negative except for usual types of orthopedic injuries. His left kneecap having been injured as a child and the rig ht patellar injury with cartilage injury as a teen. Endocrinologic: Negative. Genitourinary: No h istory of previous issues other than recent diagnosis of elevated PSA and new recent onset obstruc tive voiding symptoms. Review of systems, otherwise negative x12 systems. PHYSICAL EXAMINATION: VITAL SIGNS: Pulse 90, patient has a normal sinus rhythm on cardiac monitoring, temperature is 97.8, respiratory rate is 18, O2 saturations 97%, blood pressure is 169/77. HEAD, EYES, EARS, NOSE, AND THROAT: Extraocular movements are intact. Sclerae anicteric. Oropharyn x is clear. NECK: Supple. LUNGS: Clear to auscultation bilaterally. CARDIOVASCULAR: Regular rate and rhythm without murmur, rub, or gallop. ABDOMEN: Soft and nontender. There is no suprapubic fullness. His Moore catheter has been placed. Laparoscopy scars consistent with cholecystectomy are present. On chest examination, patient does h ave a median sternotomy scar, which is healing appropriately, relatively fresh from a bypass performe d on Wednesday. The genitourinary examination: Testes are found bilaterally in the scrotum. They are smooth, anodular, nontender. There is no significant edema. There is no evidence of hernia. Phallu s is circumcised and is without lesion. There is an indwelling Moore catheter, which is draining a s traw-colored urine. His relatively high urine output rate right now due to Lasix and spironolactone use. RECTAL: Digital rectal examination is performed and finds prostate gland which palpates to about 60 grams in overall size. It is tender consistent with prostatitis. There are no specifically nodular lesions identified. EXTREMITIES: Appear within normal limits except for scarring of patient's knee cap on the left secon aguilar to a childhood injury scars associated with the right knee secondary to arthroscopy and recent v ein harvesting left leg recent access on the right groin for dye study. ASSESSMENT AND PLAN: 1. Elevated PSA and family history of prostate cancer. Patient needs a long-term follow up after tr eatment of his prostatitis. 2. Urinary retention. We will plan on continuing Moore catheter, which can be continued at the disc harge from the hospital. Patient may present to my clinic and I have made an appointment for him on Wednesday on 03/30/2018 at 8:00 a.m. for a voiding trial in my office. We will call prescriptions fo r him as well. 3. Acute prostatitis. Patient was treated with Cefzil 500 mg p.o. b.i.d. 4. BPH-type presentation. Patient should continue on Flomax initially with his voiding trial. 5. Disposition: Patient can be discharged to home with Moore catheter today. He will return to my clinic for a voiding trial on Wednesday at 8:00 a.m.
[2018-03-26 05:16] LABS: Anion Gap 10 mmol/L (10-20); BUN (Urea Nitrogen) 12 mg/dL (8.4-25.7); Calc. Creatinine Clearance 132 mL/min (70-130); Calcium 8.7 mg/dL (7.8-10.44); Carbon Dioxide 28 mmol/L (22-29); Chloride 101 mmol/L (98-107); Estimated GFR-MDRD Greater than 90; Glucose 112 mg/dL (70-105); Potassium 3.3 mmol/L (3.5-5.1); Sodium 136 mmol/L (136-145)
[2018-03-26 05:38] LABS: #Basophils 0.1 thou/uL (0.0-0.2); #Eosinphils 0.1 thou/uL (0.0-0.7); #Lymphocytes 3.8 thou/uL (1.20-3.40); #Monocytes 1.2 thou/uL (0.11-0.59); #Neutrophils 4.7 thou/uL (1.40-6.50); %Basophils 1.1 % (0.0-1.0); %Eosinophils 1.5 % (0.0-10.0); %Lymphocytes 37.9 % (21.0-51.0); %Monocytes 12.3 % (0.0-10.0); %Neutrophils 47.2 % (42.0-75.0); Hemoglobin 9.8 g/dL (14.0-18.0); Mean Corpuscular HGB CONC 33.1 g/dL (32.0-36.0); Mean Corpuscular Hemoglobin 29.3 pg (27.0-31.0); Mean Corpuscular Volume 88.5 fL (78.0-98.0); Platelet Count 331 thou/uL (130-400); RBC Distribution Width 12.3 % (11.5-14.5); Red Blood Cell (RBC) Count 3.36 mill/uL (4.70-6.10)
[2018-03-26] MEDS: HYDROcodone/Acetaminophen 5/325 mg Tablet PO PRN ×2 (06:34→16:37)
[2018-03-26] MEDS: Losartan 25 MG TAB PO SCH (08:58)
[2018-03-26] MEDS: Furosemide 20 MG TAB PO SCH (08:58)
[2018-03-26] MEDS: Spironolactone 25 MG TAB PO SCH (08:59)
[2018-03-26] MEDS: Carvedilol 6.25 MG TAB PO SCH ×2 (09:04→16:05)
[2018-03-26] MEDS: Cefprozil 250 MG TAB PO SCH (09:06)
[2018-03-26] MEDS: Tamsulosin HCl 0.4 MG CAP PO SCH (16:05)
[2018-03-26 16:07] VITALS: BP 141/69
--- NOTE | 2018-03-26 16:40 | PDOC.CTH ---
Cardiology Progress Note - Subjective The pt seen and examined. No overnight events. No cardiac complaints. - Objective Vital Signs Temp Pulse Resp BP BP Pulse Ox 03/26/18 16:05 141/69 H 03/26/18 11:35 98.3 F 76 16 133/71 94 L 03/26/18 09:04 149/69 H 03/26/18 07:10 98.3 F 76 16 149/69 H 94 L Admit Weight 3.478 oz Weight 207 lb 03/25/18 03/26/18 03/27/18 06:59 06:59 06:59 Intake Total 1320 1440 Output Total 1500 2725 Balance -180 -1285 - Physical Examination General/Neuro: alert & oriented x3 Neck: no JVD present Lungs: CTA Heart: RRR Abdomen: soft Extremities: other: (1+ BLE edema) - Telemetry Telemetry Rhythm: SR 70s - Labs Result Diagrams: 03/26/18 04:56 03/26/18 04:56 - Assessment/Plan 1. S/p CABG x3 on 03/21/18 - stable with Coreg TID, losartan 25mg, ASA 81mg, and statin; cont. to monitor on tele 2. Urinary retntion with elevated PSA - on Moore; urology consult; 3. HTN - stable 4. ICMO - stable with current meds MAR reviewed Review of Systems - Review of Systems Constitutional: reports: no symptoms reported EENTM: reports: no symptoms reported Respiratory: reports: no symptoms reported Cardiac (ROS): reports: no symptoms reported ABD/GI: reports: no symptoms reported : reports: no symptoms reported Musculoskeletal: reports: no symptoms reported
[2018-03-26 16:44] VITALS: TEMP 98.1
--- NOTE | 2018-03-27 09:02 | DIS ---
DATE OF ADMISSION: 03/21/2018 DATE OF DISCHARGE: 03/26/2018 PRIMARY DIAGNOSIS: Coronary artery disease with ischemic cardiomyopathy. SECONDARY DIAGNOSES: Prostatitis and urinary retention. SECONDARY DIAGNOSES: Present, but not specifically addressed hypertension. PROCEDURES PERFORMED: Coronary artery bypass grafting x3 with left internal mammary artery to the LA D and reverse greater saphenous vein graft from the aorta to the first obtuse marginal into the PDA. HISTORY OF PRESENT ILLNESS AND HOSPITAL COURSE: The patient is a 62-year-old man found to have sever e 3-vessel coronary disease and markedly decreased LV function on the evaluation of frequent ectopy n oticed on an EKG that was part of a routine checkup. Imaging studies suggested that his akinetic ant erior wall was viable and he was admitted for coronary revascularization. He was extubated in the af ternoon from surgery and transferred out of the ICU on postoperative day #1. His Coreg was restarted at 6.25 mg b.i.d. on the first day after surgery and then his losartan was restarted at 25 mg a day. His chest tubes removed on postoperative day #2. On postoperative day #3, his preop Lasix 20 mg a day and Aldactone 25 mg a day were restarted that night, he was unable to void and had about a liter and a half of a urine drained when an I&O catheterization was done. He still was unable to void and had a Moore catheter placed. Urology services saw him in consultation and felt that he had significa nt prostatitis that was unlikely to resolve adequately to allow for spontaneous voiding for at least a few days. He was started on Cefzil and Flomax and he is now being discharged home on postoperative day #5 with an indwelling Moore catheter. His Coreg has been dropped to 6.25 mg a day and his losar ndiaye to 25 mg a day. He has been started on Flomax and a course of Cefzil. He is to continue his asp irin and Crestor. He has been given a prescription for Vicodin as needed for pain. He is continuing his preop doses of Lasix 20 mg a day, and spironolactone 25 mg a day.
== END 2018-03-26 17:19 | disposition home or self-care (01) | DRG 236 ==
LOC: SURG A 03-21 05:34 → EDSTATUS 03-21 11:15 → CCU 03-21 11:47 → 2NO 03-22 17:35
PROVIDERS: ADMIT Thoracic Surgery (Cardiothoracic Vascular Surgery); ATTEND Thoracic Surgery (Cardiothoracic Vascular Surgery)
PROC: 0210099 Bypass Coronary Artery, One Artery from Left Internal Mammary with Autologous Venous Tissue, Open Approach (ICD-10-PCS; principal; 2018-03-21)
PROC: 021109W Bypass Coronary Artery, Two Arteries from Aorta with Autologous Venous Tissue, Open Approach (ICD-10-PCS; 2018-03-21)
PROC: 5A1221Z Performance of Cardiac Output, Continuous (ICD-10-PCS; 2018-03-21)
DX: I25.10 Atherosclerotic heart disease of native coronary artery without angina pectoris (principal); N41.9 Inflammatory disease of prostate, unspecified; R33.9 Retention of urine, unspecified; I10 Essential (primary) hypertension; N40.1 Benign prostatic hyperplasia with lower urinary tract symptoms; I25.5 Ischemic cardiomyopathy; Z79.899 Other long term (current) drug therapy
CPT/HCPCS: 36415; 36416; 36430; 71045; 80048; 82805; 85025; 85027; 85610; 85730; 86850; 86900; 86901; 93005; 93010; 93798; 94002; A4216; J0131; J1642; J1644; J1815; J2001; J2150; J2250; J2260; J2270; J2370; J2405; J2440; J2550; J2720; J2765; J3010; J3475; J3480; J7050; P9016; P9045; S0017; S0028

== ENCOUNTER 2018-03-18 11:44 | Outpatient (CLI) | payer BC ==
--- NOTE | 2018-03-18 12:36 | RAD ---
2 VIEW CHEST: Date: 03/18/18 HISTORY: Preoperative evaluation. FINDINGS: The lung khoury appear clear. No infiltrate, effusion, or vascular congestion seen. Heart and mediast inum unremarkable. An asymmetric density in peripheral right upper lung. This overlies rib structures and may be osseous . I cannot completely exclude an underlying nodule. Recommend short-term follow-up PA chest exam. IMPRESSION: 1. No acute process. 2. Question asymmetric density peripheral right lung. Follow-up recommended. CODE T. POS: [facility]
--- NOTE | 2018-03-18 17:18 | EKG ---
Test Reason : Blood Pressure : / mmHG Vent. Rate : 071 BPM Atrial Rate : 071 BPM P-R Int : 176 ms QRS Dur : 102 ms QT Int : 418 ms P-R-T Axes : 049 -38 068 degrees QTc Int : 454 ms Normal sinus rhythm Left axis deviation Voltage criteria for left ventricular hypertrophy Cannot rule out Anteroseptal infarct (cited on or before 19-NOV-2017) T wave abnormality, consider lateral ischemia Abnormal ECG When compared with ECG of 19-NOV-2017 12:19, Premature ventricular complexes are no longer Present Questionable change in initial forces of Anteroseptal leads T wave inversion more evident in Anterolateral leads Confirmed by DR. Ramona ARREGUIN ([id number]) on 03/18/2018 5:18:13 PM Referred By: BEV Confirmed By:DR. Ramona ARREGUIN
== END 2018-03-18 11:45 | disposition home or self-care (01) ==
LOC: LABBT 11:44
PROVIDERS: ATTEND Thoracic Surgery (Cardiothoracic Vascular Surgery)
DX: Z01.818 Encounter for other preprocedural examination (principal); I25.10 Atherosclerotic heart disease of native coronary artery without angina pectoris
CPT/HCPCS: 71046; 80048; 85027; 86850; 86900; 86901; 93005; 93010

== ENCOUNTER 2018-04-01 00:15 | Inpatient (IN) | payer BC ==
[2018-04-01 01:03] LABS: #Basophils 0.1 thou/uL (0.0-0.2); #Eosinphils 0.1 thou/uL (0.0-0.7); #Lymphocytes 1.4 thou/uL (1.20-3.40); #Monocytes 0.9 thou/uL (0.11-0.59); %Basophils 0.4 % (0.0-1.0); %Eosinophils 0.3 % (0.0-10.0); %Lymphocytes 7.4 % (21.0-51.0); %Monocytes 4.7 % (0.0-10.0); %Neutrophils 87.2 % (42.0-75.0); Hemoglobin 10.7 g/dL (14.0-18.0); Mean Corpuscular HGB CONC 33.3 g/dL (32.0-36.0); Mean Corpuscular Hemoglobin 29.1 pg (27.0-31.0); Mean Corpuscular Volume 87.3 fL (78.0-98.0); Mean Platelet Volume 5.9 fL (7.4-10.4); Platelet Count 599 thou/uL (130-400); RBC Distribution Width 12.4 % (11.5-14.5); Red Blood Cell (RBC) Count 3.69 mill/uL (4.70-6.10); White Blood Cell (WBC) Count 19.4 thou/uL (4.8-10.8)
[2018-04-01 01:28] LABS: ALT (SGPT) 54 U/L (8-55); AST (SGOT) 37 U/L (5-34); Albumin 3.8 g/dL (3.5-5.0); Alkaline Phosphatase 94 U/L (40-150); Anion Gap 13 mmol/L (10-20); BUN (Urea Nitrogen) 12 mg/dL (8.4-25.7); Bilirubin, Total 0.7 mg/dL (0.2-1.2); Calc. Creatinine Clearance 0 mL/min (70-130); Calcium 9.1 mg/dL (7.8-10.44); Carbon Dioxide 22 mmol/L (22-29); Chloride 102 mmol/L (98-107); Estimated GFR-MDRD Greater than 90; Globulin 3.2 g/dL (2.4-3.5); Glucose 137 mg/dL (70-105); Potassium 3.8 mmol/L (3.5-5.1); Sodium 133 mmol/L (136-145)
[2018-04-01 01:30] LABS: INR-International Normal Ratio 1.2; PTT 38.3 SEC (22.9-36.1); Prothrombin Time 14.9 SEC (12.0-14.7)
[2018-04-01 01:43] LABS: Bilirubin Negative (Negative); Blood, Urine Large (Negative); Clarity CLOUDY (Clear); Glucose, Urine (Dipstick) Negative (Negative); Leukocyte Moderate (Negative); Nitrite Positive (Negative); Protein, Urine (Dipstick) 100 mg/dL (Neg-Trace); Specific Gravity, Urine 1.029 (1.002-1.036)
[2018-04-01 01:46] LABS: Bacteria/HPF 1+ HPF (None Seen); Hyaline Casts/LPF 4-6 HYALINE CAST LPF (0-3 Hyaline); Pathc Cast-AUWi Flag 0.29 (0-2.49); RBC/HPF GREATER THAN 50-TNTC HPF (0-3); Squamous Epithelial None Seen HPF (0-3)
[2018-04-01] MEDS ORDERED: Piperacillin/Tazobactam 4.5 GM VIAL ONE (02:03)
[2018-04-01] MEDS ORDERED: Acetaminophen 325 MG TAB ONE (04:27)
[2018-04-01 06:24] VITALS: BMI 28.7
[2018-04-01] MEDS ORDERED: Sodium Chloride 0.9% 1,000 ML IV SCH (06:26)
[2018-04-01] MEDS ORDERED: Ondansetron ODT 4 MG TAB SL PRN (06:26)
[2018-04-01] MEDS ORDERED: Ondansetron HCl/PF 4 MG/2 ML Vial IVP PRN ×2 (06:26→09:44)
[2018-04-01] MEDS ORDERED: Acetaminophen 325 MG TAB PO PRN (06:26)
[2018-04-01] MEDS: Piperacillin/Tazobactam 4.5 GM in Sodium Chloride 0.9% 100 ML IVPB SCH ×3 (07:50→22:02)
--- NOTE | 2018-04-01 08:24 | RAD ---
CHEST 1 VIEW: Date: 04/01/18 HISTORY: Fever. COMPARISON: Radiograph dated 03/23/18. FINDINGS: The heart size is mildly enlarged. Small left effusion. LifeVest is seen. The central venous catheter has been removed. Defibrillator pads overlie the chest. IMPRESSION: Small left effusion and mild pulmonary venous congestion. POS: [facility]
[2018-04-01] MEDS ORDERED: Vancomycin HCl 1 GM in Premix Bag 1 BAG IVPB SCH (09:00)
[2018-04-01] MEDS ORDERED: Sodium Chloride 0.65% Nasal 44 ML BOT EA NARE PRN (09:44)
[2018-04-01] MEDS ORDERED: Loperamide HCl 2 MG CAP PO PRN (09:44)
[2018-04-01] MEDS ORDERED: Zolpidem Tartrate 5 MG TAB PO PRN (09:44)
[2018-04-01] MEDS ORDERED: hydrALAZINE 20 MG/ML VIAL SLOW IVP PRN (09:44)
[2018-04-01] MEDS ORDERED: Diabetic Tussin 200 MG/10 ML UDCUP PO PRN (09:44)
[2018-04-01] MEDS ORDERED: Artificial Tears 18 DROP/0.9 ML EA EYE PRN (09:44)
[2018-04-01] MEDS ORDERED: Loratadine 10 MG TAB PO PRN (09:44)
[2018-04-01] MEDS ORDERED: Mag-Al 1200 mg/1200 mg/30 ML UDCUP PO PRN (09:44)
[2018-04-01] MEDS ORDERED: Ondansetron ODT 4 MG TAB PO PRN (09:44)
[2018-04-01] MEDS ORDERED: HYDROcodone/Acetaminophen 5/325 mg Tablet PO PRN (09:44)
[2018-04-01] MEDS ORDERED: Bisacodyl 10 MG SUPP PR PRN (09:44)
[2018-04-01] MEDS ORDERED: Eucerin (Mineral Oil/Petrolatum,White) 30 gm Jar TOP PRN (09:44)
[2018-04-01] MEDS ORDERED: Senokot 8.6 MG TAB PO PRN (09:44)
[2018-04-01] MEDS ORDERED: Nitroglycerin 0.4 MG TAB (25 Tab Bottle) SL PRN (09:44)
[2018-04-01] MEDS ORDERED: Milk Of Magnesia 30 ML UDCUP PO PRN (09:44)
[2018-04-01] MEDS ORDERED: Chloraseptic Spray 180 ml Bottle PO PRN (09:44)
--- NOTE | 2018-04-01 11:32 | HP ---
PRIMARY CARE PHYSICIAN: Dr. Shay Llanos. REASON FOR ADMISSION: Sepsis, urinary tract infection. HISTORY OF PRESENT ILLNESS: A 62-year-old male who was recently admitted in our hospital on 03/21/2018. Patient underwent CABG x3 by Dr. Desai on 05/2018. Patient has underlying history of ischemic cardiomyopathy. After bypass surgery, the patient was in CCU. The patient had a Moore catheter postoperatively. Upon stabilization from CCU, the patient was transferred to telemetry floor and the patient recalls that his Moore catheter was discontinued. Subsequently, the patient had urinary retention on 03/25/2018 and at that time, Dr. Klapesh Hurtado, urologist saw this patient and he suspected prostatitis. The patient had a Moore catheter required for urinary retention. Patient was discharged home on oral antibiotic therapy with Cefzil. The patient was discharged with the Moore catheter. Patient was discharged from the hospital on 03/26/2018. The patient saw primary care physician on 2017, on Wednesday. The patient had regular followup appointment with Dr. Posey on 03/30/2018, Wednesday morning, at that time, Moore catheter was discontinued. The patient did not have any problem on Wednesday, but on , the patient was experiencing urinary retention. He was not able to pee at all and that is why patient's daughter took him to Dr. Posey's office where nurse did Moore catheterization. At that time, 1100 mL urine came out. After that, the patient's abdominal discomfort got relieved and he went to home. During evening time, the patient started having fever with chills. He was feeling nauseated. He was getting exhausted and very weak and that is why they called the doctor's office who advised him to go to local emergency room for evaluation. Patient was febrile during night time and that is why family member brought him to ER. In the emergency room, the patient had a Moore catheter and he was febrile with a temperature of 101.1. His maximum temperature at home was 103. The patient was hemodynamically stable other than fever. He was tachycardic on admission. He was meeting sepsis criteria. His urinalysis was consistent with UTI and he had leukocytosis. In the emergency room, the patient was treated with vancomycin, Zosyn, Tylenol, IV fluid and subsequently, he was admitted to telemetry floor. When I saw this patient, at that time, patient appeared weak. He was following commands, but he was sleepy because he did not get any sleep during night time. His was present who provided most of the history. The patient denies any diarrhea. He denies any surgical site pain. He denies any surgical site infection. He does report intermittent constipation, but his last bowel movement was day before yesterday. He denies any sore throat, headache, chest pain, cough, pleurisy. He denies any abdominal pain. He feels nausea, but he denies any vomiting. He feels weak and malaise. REVIEW OF SYSTEMS: The following complete review of systems was negative, unless otherwise mentioned in the HPI or below: Constitutional: Weight loss or gain, ability to conduct usual activities. Skin: Rash, itching. Eyes: Double vision, pain. ENT/Mouth: Nose bleeding, neck stiffness, pain, tenderness. Cardiovascular: Palpitations, dyspnea on exertion, orthopnea. Respiratory: Shortness of breath, wheezing, cough, hemoptysis, fever or night sweats. Gastrointestinal: Poor appetite, abdominal pain, heartburn, nausea, vomiting, constipation, or diarrhea. Genitourinary: Urgency, frequency, dysuria, nocturia. Musculoskeletal: Pain, swelling. Neurologic/Psychiatric: Anxiety, depression. Allergy/Immunologic: Skin rash, bleeding tendency. Please see my HPI for pertinent positive and negative. All other review of system reviewed and negative except as mentioned in the HPI. PAST MEDICAL HISTORY: The patient has a three-vessel coronary artery disease with ischemic cardiomyopathy, hypertension, dyslipidemia, chronic systolic heart failure with EF 20%, retinal detachment in left eye, recent diagnosis of acute prostatitis with history of benign enlargement of prostate. PAST SURGICAL HISTORY: CABG x3 on 03/21/2018, pars plana vitrectomy and laser surgery in left eye, history of knee surgery in 1986, history of gallbladder surgery in 1976. PAST PSYCHIATRIC HISTORY: Anxiety disorder. FAMILY HISTORY: Father from heart disease by age of 74. He also diagnosed with unknown cancer. Mother has diabetes and hypertension. SOCIAL HISTORY: Patient is . He is nonsmoker. He denies any alcohol abuse. He denies any other illicit drug abuse. ALLERGIES: No known drug allergy. EMERGENCY ROOM COURSE: The patient was treated with vancomycin, Zosyn, IV fluid , and Tylenol. CURRENT HOME MEDICATIONS: Patient was discharged home on following medications : Xanax 1 mg p.o. daily, vitamin C 500 mg p.o. daily, aspirin 81 mg p.o. daily , Coreg 12.5 mg p.o. b.i.d., Cefzil 500 mg p.o. b.i.d., cetirizine 10 mg p.o. daily, Colace 100 mg daily, ferrous sulfate 325 mg p.o. daily, Lasix 40 mg p.o. daily, [place] 5 one tablet q.4 hours p.r.n., losartan 25 mg p.o. daily, MiraLax 17 grams p.o. daily, Crestor 10 mg p.o. at bedtime, Aldactone 25 mg p.o. daily, Flomax 0.4 mg p.o. daily. PHYSICAL EXAMINATION: VITAL SIGNS: On arrival, blood pressure 130/81, pulse 108, temperature 103.0, respiratory rate of 23, saturation 94% on room air, weight 92.1 kilograms. GENERAL: Patient is currently alert, awake, sleepy, febrile, tachycardic. No obvious acute distress. HEENT: Head: Normocephalic, atraumatic. Eyes: Pupils round, reactive to light. Extraocular muscle intact. ENT: Oropharynx within normal limits. Moist mucous membranes, no oral lesion, no pharyngeal erythema, no exudate. NECK: Supple, no JVD, no thyromegaly, no carotid bruit, no jugular venous distention. LUNGS: Clear to auscultation without any rhonchi or rales. CARDIAC: S1, S2 regular, tachycardia. LifeVest in place. No murmur elicited, no gallop, no rub. CHEST WALL: The patient does have good midline sternotomy incision without any signs of infection. ABDOMEN: Soft, bowel sounds present, nontender, nondistended. No organomegaly , no mass, no suprapubic tenderness. GENITALIA: The patient does have Moore catheter in place draining clear urine. BACK: No CVA tenderness. EXTREMITIES: Upper extremity, passive movement of all joints are normal. Lower extremity, no edema. Good peripheral pulsation. Surgical site is clean and healthy. SKIN: No skin rash. HEMATOLOGIC: No lymphadenopathy. PSYCHIATRIC: Normal affect. NEUROLOGIC: The patient is moving all 4 limbs. Nonfocal neurological examination. Speech normal. SIGNIFICANT LABORATORY DATA AND IMAGING: EKG showing sinus tachycardia, premature ventricular complexes, LVH. CBC: WBC 19.4, hemoglobin 10.7, platelet 599 with a left shift. INR 1.2. BMP: Sodium 133, potassium 3.8, chloride 102, carbon dioxide 22, BUN 12, creatinine 0.84, glucose 137, calcium 9.1, lactic acid 0.8. LFT: AST 37, ALT 54, alkaline phosphatase 94, albumin 3.8. CK 35. Urinalysis consistent with urinary tract infection. ASSESSMENT AND PLAN: 1. Sepsis, likely due to urinary tract infection. Patient has a leukocytosis with a high grade fever, tachycardia, tachypnea, all meet sepsis criteria. Source of infection is urinary tract. We are concerned about bacteremia. We did a urine culture, blood culture in the emergency room. We will follow up on culture result. Patient is already on broad spectrum antibiotic therapy with vancomycin and Zosyn. Based on culture result, we will change antibiotic accordingly. We will closely monitor on telemetry floor. 2. Urinary tract infection related with recently in and out Moore catheterization as well as chronic indwelling Moore catheter. This patient has underlying acute prostatitis and patient was given Cefzil 500 mg twice daily. He had a voiding trial as an outpatient basis and the patient was discharged with the Moore catheter that was discontinued on Wednesday, again the patient had urinary retention, required re-Moore catheterization. I think this patient might have associated mucosal trauma and bacteremia from mucosal injury with a Moore catheterization. Current urinary tract infection is related with his indwelling catheter. Patient is on broad spectrum antibiotic therapy with vancomycin and Zosyn and based on culture result, we will narrow down antibiotic spectrum. Urology will be consulted as well. 3. Three-vessel coronary artery disease with ischemic cardiomyopathy, status post coronary artery bypass graft x3. The patient's family member request Dr. Desai needs to be consulted and that is why we will consult him as well. Because of his cardiomyopathy and low ejection fraction, we will discontinue IV fluid as patient is able to take oral intake. The patient already has LifeVest in place. The patient will continue his home medication with Coreg 12.5 mg twice daily, aspirin 81 mg p.o. daily, Lasix 40 mg p.o. daily, losartan 25 mg p.o. daily, Crestor 10 mg p.o. at bedtime and Aldactone 25 mg p.o. daily. We will monitor the patient's hemodynamics and if blood pressure remains lower than 110, then we will hold on antihypertensive medication. 4. Chronic systolic heart failure. Currently, the patient appears euvolemic. As mentioned above, we will continue Coreg, losartan, Lasix, Aldactone as per home dosage. 5. Dyslipidemia. Continue Lipitor 10 mg p.o. at bedtime. 6. Anxiety disorder. We will continue Xanax 1 mg p.o. daily. 7. Constipation. We will continue with the Colace 100 mg p.o. daily, MiraLax 100 mg p.o. daily. 8. Acute prostatitis with benign enlargement of prostate. We will continue Flomax 0.4 mg p.o. daily. 9. Deep venous thrombosis prophylaxis. Lovenox 40 mg subcu daily. 10. Gastrointestinal prophylaxis. Pepcid 20 mg p.o. b.i.d. 11. CODE STATUS: The patient is FULL CODE. The patient's is surrogate decision maker. Disposition plan based on clinical course. We are expecting patient's stay in hospital more than 2 midnights. Plan of care discussed with the patient and family member at bedside. MTDD
[2018-04-01] MEDS: Acetaminophen 325 MG TAB PO PRN ×3 (12:31→22:05)
--- NOTE | 2018-04-01 19:02 | CON ---
DATE OF CONSULTATION: 04/01/2018 CHIEF COMPLAINT: Urinary retention with indwelling Moore catheter, apparent urosepsis. HISTORY OF PRESENT ILLNESS: Mr. Nain Portillo Jr. is a very pleasant 62-year-old white male with hi story of ischemic cardiomyopathy who underwent a coronary artery bypass graft x3 vessels on 8. Patient had urinary retention and prostatitis postoperatively and was discharged home with indwel ling Moore catheter and on antibiotics. He presented to my clinic on 03/30/2018 and underwent a void ing trial which he passed at that time. The patient subsequently called my office on the afternoon h ours of 03/31/2018 with a complaint that he was having difficulty voiding again who presented to [facility] and had indwelling Moore catheter placed at that time. Patient was discharged home from the [facility] in good condition with no signs of sepsis. Later in the evening, he developed shaking chills and w as ultimately brought to the emergency department here at [facility] for [facility] evaluation and assessment. Emergency department evaluation found the patient's urine to have greater than 50 red cells and great er than 50 white cells, and 1+ bacteria. Urine was nitrite positive at that point. Urine gravity is relatively elevated at 1.029. He had a fever of 103 at home prior to being transported to the emerg ency department. Patient reported that he had mild right-sided back pain as well. He had tachycardi a as well. Patient received IV fluid and antibiotic coverage in the emergency department and was adm itted for evaluation and assessment. PAST MEDICAL HISTORY: 1. Ischemic cardiomyopathy with a history of coronary artery bypass grafting. 2. Prostatitis. 3. History of left eye issues and left eye surgery. 4. Orthopedic issues and arthroscopy evaluations of right knee. PAST SURGICAL HISTORY: 1. Left eye surgery x2. 2. Right knee arthroscopy. 3. Laparoscopic cholecystectomy. 4. Coronary artery bypass graft on 03/21/2018. FAMILY MEDICAL HISTORY: Patient's father has a history of coronary artery disease and also prostate cancer. Patient's maternal grandfather also had prostate cancer. SOCIAL HISTORY: Patient is a lifelong nonsmoker and is employed by [employer]. He has no history of substance abuse. He does consume alcohol on occasional basis. ALLERGIES: No known drug allergies. COMPLETE MEDICATION LIST: Includes the followin. [place] 5/325 one to two p.o. q.4 hours p.r.n. for pain. 2. Coreg 6.25 mg p.o. t.i.d. 3. Lasix 20 mg per day. 4. Cozaar 25 mg per day. 5. Zofran 4 mg IVP q.4 hours for nausea. 6. Nitrostat 0.4 mg sublingual p.r.n. chest pain. 7. Spironolactone 25 mg p.o. q.a.m. 8. Flomax 0.4 mg p.o. at bedtime. 9. Ambien 5 mg at bedtime. 10. Patient's admission antibiotic was Cefzil 500 mg p.o. b.i.d. REVIEW OF SYSTEMS: HEENT: Negative. Neurologic: Negative. Constitutional: Patient reports fever at home. Cardiovascular: Patient had 2 cardiac events in the past and has had a recent coronary ar lj bypass grafting earlier in the month. Gastrointestinal: Positive for history of cholecystectom y. No current GI discomfort complaints and no bloody stool. Musculoskeletal: Patient does report s ome right flank pain. Patient's left knee cap was injured as a child and he also has had a right pat ellar injury with cartilage injury as a teen. Endocrinologic: Negative. No history of diabetes. G enitourinary: No history of previous issues other than recent diagnosis of elevated PSA and obstr uctive voiding history as well as urinary retention which predates this hospitalization. Review of s ystems is otherwise negative x12 systems. PHYSICAL EXAMINATION: VITAL SIGNS: T-max is 100.3 F this morning with a current temperature of 99.8, pulse is 84 down from 97 on admission, respirations 16, O2 saturation is 93% on room air with a current blood pressure of 126/64. HEENT: Extraocular movements are intact. Sclerae are anicteric. Oropharynx is clear. NECK: Supple. LUNGS: Clear to auscultation bilaterally. CARDIOVASCULAR: There is a regular rate and rhythm. The patient has a LifeVest in place. There is a median sternotomy scar present on the patient's chest. ABDOMEN: Soft and nontender. BACK: Mild right-sided costovertebral angle tenderness. GENITOURINARY: Phallus is without lesion. Indwelling Moore catheter remains in place. RECTAL: Digital rectal examination was not repeated due to the patient's presentation and recent sean luation in the last week. EXTREMITIES: Appear within normal limits except for graft donor sites predominantly left leg. LABORATORY AND X-RAY FINDINGS: Urinalysis showed a urine gravity 1.029 with a large amount of blood and nitrite positivity, leukocyte esterase was moderate with red cells measured at 50 or greater and white cells measured at 50 or greater, 1+ bacteria and 4-6 hyaline casts per high power field. Laboratory evaluation shows the patient having an elevated white count of 19,400 consistent with a se psis diagnosis, platelet count and acute phase reactant elevated at 599, neutrophil count 87.2%, also elevated. The ANC elevated to 17. Serum chemistries show a sodium of 133, potassium of 3.8, blood urea nitrogen of 12 and creatinine of 0.84. ASSESSMENT AND PLAN: 1. Prostatitis. Patient should continue on appropriate antibiotic coverage. His cultures are pendi ng. We will use those to guide further therapy. He was on Cefzil appropriately at [facility] at his last admission and was on that at the time of admissions, so most likely the patient's organ ism would not be responsive to cephalosporins and Rocephin type medications. Broad spectrum coverage is indicated. 2. Urinary retention. Plan will be to continue maximal medical therapy. Patient in this case anny olmstead will need to be discharged home with a Moore catheter in place for a subsequent voiding trial in clinic. The patient repetitively fails voiding trials. After initial care, I would recommend consid eration of a multicore prostate needle biopsy and ultrasound sizing for planning purposes. The patie nt may well require a transurethral resection of the prostate gland to gain control of his infection. At the present time, we will take a conservative course and treat on treat the infection as directe d by microbiological culture. 3. Ischemic cardiomyopathy, status post CABG with current LifeVest in place. The patient's incision was examined during the course of today's evaluation. There was no evidence of purulence, drainage or redness. This infectious process appears to involve the urinary tract and is expected given the r etention history and late presentation after voiding trial with retained urine. TIME SPENT: Over 70 minutes of initial evaluation and consultation time spent in the assessment of t his patient today.
[2018-04-01] MEDS: Carvedilol 6.25 MG TAB PO SCH (22:04)
[2018-04-01] MEDS: Rosuvastatin 10 MG TAB PO SCH (22:05)
[2018-04-01] MEDS: Famotidine 20 MG TAB PO SCH (22:05)
[2018-04-01] MEDS: Tamsulosin HCl 0.4 MG CAP PO SCH (22:06)
[2018-04-02 05:34] LABS: #Lymphocytes 1.4 thou/uL (1.20-3.40); #Neutrophils 11.2 thou/uL (1.40-6.50); %Basophils 0.3 % (0.0-1.0); %Eosinophils 0.2 % (0.0-10.0); %Lymphocytes 9.9 % (21.0-51.0); %Monocytes 7.4 % (0.0-10.0); %Neutrophils 82.2 % (42.0-75.0); Hemoglobin 9.4 g/dL (14.0-18.0); Mean Corpuscular HGB CONC 32.2 g/dL (32.0-36.0); Mean Corpuscular Hemoglobin 28.4 pg (27.0-31.0); Mean Corpuscular Volume 88.1 fL (78.0-98.0); Platelet Count 443 thou/uL (130-400); RBC Distribution Width 12.5 % (11.5-14.5); White Blood Cell (WBC) Count 13.6 thou/uL (4.8-10.8)
[2018-04-02 05:39] LABS: ALT (SGPT) 52 U/L (8-55); AST (SGOT) 30 U/L (5-34); Albumin 3.2 g/dL (3.5-5.0); Alkaline Phosphatase 93 U/L (40-150); Anion Gap 10 mmol/L (10-20); BUN (Urea Nitrogen) 15 mg/dL (8.4-25.7); Bilirubin, Total 0.6 mg/dL (0.2-1.2); Calc. Creatinine Clearance 101 mL/min (70-130); Calcium 8.2 mg/dL (7.8-10.44); Carbon Dioxide 25 mmol/L (22-29); Chloride 102 mmol/L (98-107); Estimated GFR-MDRD 71; Globulin 2.7 g/dL (2.4-3.5); Glucose 114 mg/dL (70-105); Potassium 3.8 mmol/L (3.5-5.1); Protein, Total 5.9 g/dL (6.0-8.3); Sodium 133 mmol/L (136-145)
[2018-04-02] MEDS: Piperacillin/Tazobactam 4.5 GM in Sodium Chloride 0.9% 100 ML IVPB SCH ×4 (06:08→21:16)
[2018-04-02] MEDS: Acetaminophen 325 MG TAB PO PRN ×3 (06:08→21:13)
[2018-04-02] MEDS: Enoxaparin Sodium 40 MG/0.4 ML SYRINGE SC SCH (09:52)
[2018-04-02] MEDS: Famotidine 20 MG TAB PO SCH ×2 (09:54→21:15)
[2018-04-02] MEDS: Spironolactone 25 MG TAB PO SCH (09:55)
[2018-04-02] MEDS: Carvedilol 6.25 MG TAB PO SCH ×2 (09:55→21:15)
[2018-04-02] MEDS: Furosemide 40 MG TAB PO SCH (09:55)
[2018-04-02] MEDS: Losartan 25 MG TAB PO SCH (09:55)
[2018-04-02] MEDS: Ascorbic Acid 500 mg Chewable Tablet PO SCH (09:55)
[2018-04-02] MEDS: Saccharomyces boulardii 250 MG CAP PO SCH (09:55)
[2018-04-02] MEDS: Docusate 100 MG CAP PO SCH (09:55)
[2018-04-02] MEDS: Ferrous Sulfate 325 MG TAB PO SCH (09:56)
[2018-04-02] MEDS: ALPRAZolam 1 MG TAB PO SCH (09:56)
[2018-04-02] MEDS: Polyethylene Glycol 3350 17 GM Packet PO SCH (09:56)
--- NOTE | 2018-04-02 11:03 | PDOC.PN ---
- Subjective Encounter Start Date: 04/02/18 Encounter Start Time: 07:15 pt has low grade fever, he feels subjectively better, no diarrhoea or chest pain - Objective Resuscitation Status: Resuscitation Status FULL:Full Resuscitation MAR Reviewed: Yes Vital Signs & Weight: Vital Signs (12 hours) Temp Pulse Resp BP BP Pulse Ox 04/02/18 09:55 124/75 04/02/18 08:05 98.7 F 86 16 94 L 04/02/18 08:00 98.7 F 86 16 124/75 94 L 04/02/18 04:00 99.2 F 83 18 126/64 93 L 04/02/18 00:00 99.7 F H 77 18 108/58 L 95 Weight Weight 211 lb 12.8 oz I&O: 04/01/18 04/02/18 04/03/18 06:59 06:59 06:59 Intake Total 50 Balance 50 Result Diagrams: 04/02/18 04:30 04/02/18 04:30 EKG Reviewed by me: Yes (nsr) Phys Exam - Physical Examination Constitutional: NAD HEENT: PERRLA, moist MMs, sclera anicteric Neck: no JVD, supple Respiratory: no wheezing, no rales, no rhonchi surgical site clean life vest in place Cardiovascular: RRR, no significant murmur, no rub Gastrointestinal: soft, non-tender, no distention, positive bowel sounds monsivais+ Musculoskeletal: no edema, pulses present Neurological: non-focal, normal sensation, moves all 4 limbs Lymphatic: no nodes Psychiatric: normal affect, A&O x 3 Skin: no rash, normal turgor Dx/Plan (1) Acute prostatitis Code(s): N41.0 - ACUTE PROSTATITIS Status: Acute (2) Bacteremia due to Pseudomonas Code(s): R78.81 - BACTEREMIA Status: Acute (3) Sepsis Code(s): A41.9 - SEPSIS, UNSPECIFIED ORGANISM Status: Acute Qualifiers: Sepsis type: Pseudomonas Qualified Code(s): A41.52 - Sepsis due to Pseudomonas (4) UTI (urinary tract infection) due to urinary indwelling catheter Code(s): T83.511A - I/I REACT D/T INDWELLING URETHRAL CATHETER, INIT; N39.0 - URINARY TRACT INFECTION, SITE NOT SPECIFIED Status: Acute Qualifiers: Indwelling urinary catheter type: indwelling urethral catheter (5) Anemia, normocytic normochromic Code(s): D64.9 - ANEMIA, UNSPECIFIED Status: Chronic (6) Anxiety Code(s): F41.9 - ANXIETY DISORDER, UNSPECIFIED Status: Chronic (7) CAD (coronary artery disease) Code(s): I25.10 - ATHSCL HEART DISEASE OF [place] CORONARY ARTERY W/O ANG PCTRS Status: Chronic (8) Dyslipidemia Code(s): E78.5 - HYPERLIPIDEMIA, UNSPECIFIED Status: Chronic (9) Hypertension Code(s): I10 - ESSENTIAL (PRIMARY) HYPERTENSION Status: Chronic (10) Ischemic cardiomyopathy Code(s): I25.5 - ISCHEMIC CARDIOMYOPATHY Status: Chronic - Plan cont current plan of care, plan discussed w/ family, continue antibiotics * based on culture result, today will DC vancomycin * will continue Zosyn and will add levaquin for pseudomonas coverage * will repeat labs tomorrow * discussed with * urology recommendation noted * medication reviewed as below * symptomatic treatment. Review of Systems - Review of Systems Constitutional: fever. negative: chills, sweats, weakness, malaise, other ENT: negative: Ear Pain, Ear Discharge, Nose Pain, Nose Discharge, Nose Congestion, Mouth Pain, Mouth Swelling, Throat Pain, Throat Swelling, Other Respiratory: negative: Cough, Dry, Shortness of Breath, Hemoptysis, SOB with Excertion, Pleuritic Pain, Sputum, Wheezing Cardiovascular: negative: chest pain, palpitations, orthopnea, paroxysmal nocturnal dyspnea, edema, light headedness, other Gastrointestinal: negative: Nausea, Vomiting, Abdominal Pain, Diarrhea, Constipation, Melena, Hematochezia, Other Genitourinary: negative: Dysuria, Frequency, Incontinence, Hematuria, Retention , Other Musculoskeletal: negative: Neck Pain, Shoulder Pain, Arm Pain, Back Pain, Hand Pain, Leg Pain, Foot Pain, Other Skin: negative: Rash, Lesions, Cheo, Bruising, Other - Medications/Allergies Allergies/Adverse Reactions: Allergies Allergy/AdvReac Type Severity Reaction Status Date / Time No Known Drug Allergies Allergy Verified 04/01/18 08:59 Medications: Current Medications Acetaminophen (Tylenol) 650 mg PO Q6H PRN PRN Reason: Fever/Mild Pain Last Admin: 04/02/18 06:08 Dose: 650 mg Hydrocodone Bitart/Acetaminophen ([place] 5/325) 1 tab PO Q4H PRN PRN Reason: Moderate Pain (4-6) Al Hydroxide/Mg Hydroxide (Maalox) 15 ml PO Q4H PRN PRN Reason: Heartburn or Indigestion Alprazolam (Xanax) 1 mg PO DAILY [facility] Last Admin: 04/02/18 09:56 Dose: Not Given Artificial Tears (Tears Naturale) 0 drop EA EYE PRN PRN PRN Reason: Dry Eyes Ascorbic Acid (Vitamin C) 500 mg PO DAILY [facility] Last Admin: 04/02/18 09:55 Dose: 500 mg Aspirin (Aspirin Chewable) 81 mg PO DAILY [facility] Last Admin: 04/02/18 09:55 Dose: 81 mg Bisacodyl (Dulcolax) 10 mg [place] DAILYPRN PRN PRN Reason: Constipation Carvedilol (Coreg) 12.5 mg PO BID [facility] Last Admin: 04/02/18 09:55 Dose: 12.5 mg Docusate Sodium (Colace) 100 mg PO DAILY [facility] Last Admin: 04/02/18 09:55 Dose: 100 mg Enoxaparin Sodium (Lovenox) 40 mg SC 0900 [facility] Last Admin: 04/02/18 09:52 Dose: 40 mg Famotidine (Pepcid) 20 mg PO BID [facility] Last Admin: 04/02/18 09:54 Dose: 20 mg Ferrous Sulfate (Feosol) 325 mg PO DAILY [facility] Last Admin: 04/02/18 09:56 Dose: 325 mg Furosemide (Lasix) 40 mg PO DAILY [facility] Last Admin: 04/02/18 09:55 Dose: 40 mg Guaifenesin (Robitussin Sf) 200 mg PO Q4H PRN PRN Reason: Cough Hydralazine HCl (Apresoline) 10 mg SLOW IVP Q4H PRN PRN Reason: Systolic BP > 180 Piperacillin Sod/Tazobactam (Sod 4.5 gm/ Sodium Chloride) 100 mls @ 200 mls/hr IVPB 0400,1000,1600,2200 [facility] Last Admin: 04/02/18 06:08 Dose: 100 mls Levofloxacin 750 mg/ Device 150 mls @ 100 mls/hr IVPB 1100 [facility] Last Admin: 04/02/18 09:59 Dose: 150 mls Loperamide HCl (Imodium) 2 mg PO PRN PRN PRN Reason: Diarrhea/Loose Stools Loratadine (Claritin) 10 mg PO DAILYPRN PRN PRN Reason: Sinus Symptoms Losartan Potassium (Cozaar) 25 mg PO DAILY [facility] Last Admin: 04/02/18 09:55 Dose: 25 mg Magnesium Hydroxide (Milk Of Magnesium) 30 ml PO DAILYPRN PRN PRN Reason: Constipation Mineral Oil/White Petrolatum (Eucerin Cream) 0 gm TOP BIDPRN PRN PRN Reason: Dry Skin Nitroglycerin (Nitrostat) 0.4 mg SL Q5MIN PRN PRN Reason: Chest Pain Ondansetron HCl (Zofran Odt) 4 mg PO Q6H PRN PRN Reason: Nausea/Vomiting Ondansetron HCl (Zofran) 4 mg IVP Q6H PRN PRN Reason: Nausea/Vomiting Phenol (Chloraseptic [place] 180 Ml Bot) 0 ml PO PRN PRN PRN Reason: Sore Throat Polyethylene Glycol (Miralax) 17 gm PO DAILY [facility] Last Admin: 04/02/18 09:56 Dose: 17 gm Rosuvastatin Calcium (Crestor) 10 mg PO [facility] Last Admin: 04/01/18 22:05 Dose: 10 mg Saccharomyces Boulardii (Florastor) 250 mg PO DAILY [facility] Last Admin: 04/02/18 09:55 Dose: 250 mg Senna (Senokot) 2 tab PO HSPRN PRN PRN Reason: Constipation Sodium Chloride (Flush - Normal Saline) 10 ml IVF Q12HR [facility] Last Admin: 04/02/18 09:56 Dose: 10 ml Sodium Chloride (Flush - Normal Saline) 10 ml IVF PRN PRN PRN Reason: Saline Flush Sodium Chloride ([place] Nasal [place] 0.65%) 0 ml EA NARE QIDPRN PRN PRN Reason: Nasal Congestion Spironolactone (Aldactone) 25 mg PO QAM-WM [facility] Last Admin: 04/02/18 09:55 Dose: 25 mg Tamsulosin HCl (Flomax) 0.4 mg PO [facility] Last Admin: 04/01/18 22:06 Dose: 0.4 mg Zolpidem Tartrate (Ambien) 5 mg PO HSPRN PRN PRN Reason: Insomnia
[2018-04-02] MEDS: Rosuvastatin 10 MG TAB PO SCH (21:15)
[2018-04-02] MEDS: Tamsulosin HCl 0.4 MG CAP PO SCH (21:15)
[2018-04-03] MEDS: Piperacillin/Tazobactam 4.5 GM in Sodium Chloride 0.9% 100 ML IVPB SCH (04:21)
[2018-04-03 06:22] LABS: #Basophils 0.1 thou/uL (0.0-0.2); #Eosinphils 0.1 thou/uL (0.0-0.7); #Lymphocytes 1.4 thou/uL (1.20-3.40); #Monocytes 1.1 thou/uL (0.11-0.59); #Neutrophils 6.5 thou/uL (1.40-6.50); %Basophils 0.8 % (0.0-1.0); %Eosinophils 1.5 % (0.0-10.0); %Lymphocytes 15.6 % (21.0-51.0); %Monocytes 11.6 % (0.0-10.0); %Neutrophils 70.6 % (42.0-75.0); Hemoglobin 9.8 g/dL (14.0-18.0); Mean Corpuscular HGB CONC 33.6 g/dL (32.0-36.0); Mean Corpuscular Hemoglobin 29.8 pg (27.0-31.0); Mean Corpuscular Volume 88.6 fL (78.0-98.0); Mean Platelet Volume 6.2 fL (7.4-10.4); Platelet Count 401 thou/uL (130-400); RBC Distribution Width 12.5 % (11.5-14.5); Red Blood Cell (RBC) Count 3.28 mill/uL (4.70-6.10); White Blood Cell (WBC) Count 9.3 thou/uL (4.8-10.8)
[2018-04-03 06:40] LABS: Anion Gap 11 mmol/L (10-20); BUN (Urea Nitrogen) 10 mg/dL (8.4-25.7); Calc. Creatinine Clearance 103 mL/min (70-130); Calcium 8.7 mg/dL (7.8-10.44); Carbon Dioxide 26 mmol/L (22-29); Chloride 103 mmol/L (98-107); Estimated GFR-MDRD 73; Glucose 118 mg/dL (70-105); Potassium 3.5 mmol/L (3.5-5.1); Sodium 136 mmol/L (136-145)
[2018-04-03] MEDS: Docusate 100 MG CAP PO SCH (09:04)
[2018-04-03] MEDS: Polyethylene Glycol 3350 17 GM Packet PO SCH (09:04)
[2018-04-03] MEDS: Spironolactone 25 MG TAB PO SCH (09:04)
[2018-04-03] MEDS: Enoxaparin Sodium 40 MG/0.4 ML SYRINGE SC SCH (09:04)
[2018-04-03] MEDS: Carvedilol 6.25 MG TAB PO SCH ×2 (09:05→20:52)
[2018-04-03] MEDS: Losartan 25 MG TAB PO SCH (09:05)
[2018-04-03] MEDS: Ascorbic Acid 500 mg Chewable Tablet PO SCH (09:05)
[2018-04-03] MEDS: Ferrous Sulfate 325 MG TAB PO SCH (09:06)
[2018-04-03] MEDS: Saccharomyces boulardii 250 MG CAP PO SCH (09:06)
[2018-04-03] MEDS: Furosemide 40 MG TAB PO SCH (09:06)
[2018-04-03] MEDS: Famotidine 20 MG TAB PO SCH ×2 (09:06→20:52)
[2018-04-03] MEDS: ALPRAZolam 1 MG TAB PO SCH (09:15)
--- NOTE | 2018-04-03 09:37 | PDOC.PN ---
- Subjective Encounter Start Date: 04/03/18 Encounter Start Time: 07:10 Patient seen and examined. No new complaints. No overnight events he is doing well, no fever - Objective Resuscitation Status: Resuscitation Status FULL:Full Resuscitation MAR Reviewed: Yes Vital Signs & Weight: Vital Signs (12 hours) Temp Pulse Resp BP BP Pulse Ox 04/03/18 09:05 124/75 04/03/18 08:00 98.3 F 86 18 156/91 H 97 04/03/18 04:00 98.5 F 79 18 151/82 H 95 04/03/18 00:00 98.5 F 73 18 138/80 96 Weight Weight 211 lb 12.8 oz I&O: 04/02/18 04/03/18 04/04/18 06:59 06:59 06:59 Intake Total 50 2050 Output Total 3100 Balance 50 -1050 Result Diagrams: 04/03/18 05:42 04/03/18 05:42 EKG Reviewed by me: Yes (nsr) Phys Exam - Physical Examination Constitutional: NAD HEENT: PERRLA, moist MMs, sclera anicteric Neck: no JVD, supple Respiratory: no wheezing, no rales, no rhonchi Cardiovascular: RRR, no significant murmur, no rub Gastrointestinal: soft, non-tender, no distention, positive bowel sounds monsivais+ Musculoskeletal: no edema, pulses present Neurological: non-focal, normal sensation, moves all 4 limbs Psychiatric: normal affect, A&O x 3 Skin: no rash, normal turgor Dx/Plan (1) Acute prostatitis Code(s): N41.0 - ACUTE PROSTATITIS Status: Acute (2) Bacteremia due to Pseudomonas Code(s): R78.81 - BACTEREMIA Status: Acute (3) Sepsis Code(s): A41.9 - SEPSIS, UNSPECIFIED ORGANISM Status: Acute Qualifiers: Sepsis type: Pseudomonas Qualified Code(s): A41.52 - Sepsis due to Pseudomonas (4) UTI (urinary tract infection) due to urinary indwelling catheter Code(s): T83.511A - I/I REACT D/T INDWELLING URETHRAL CATHETER, INIT; N39.0 - URINARY TRACT INFECTION, SITE NOT SPECIFIED Status: Acute Qualifiers: Indwelling urinary catheter type: indwelling urethral catheter (5) Anemia, normocytic normochromic Code(s): D64.9 - ANEMIA, UNSPECIFIED Status: Chronic (6) Anxiety Code(s): F41.9 - ANXIETY DISORDER, UNSPECIFIED Status: Chronic (7) CAD (coronary artery disease) Code(s): I25.10 - ATHSCL HEART DISEASE OF [place] CORONARY ARTERY W/O ANG PCTRS Status: Chronic (8) Dyslipidemia Code(s): E78.5 - HYPERLIPIDEMIA, UNSPECIFIED Status: Chronic (9) Hypertension Code(s): I10 - ESSENTIAL (PRIMARY) HYPERTENSION Status: Chronic (10) Ischemic cardiomyopathy Code(s): I25.5 - ISCHEMIC CARDIOMYOPATHY Status: Chronic - Plan cont current plan of care, continue antibiotics * based on C & S result, today will DC zosyn * continue levaquin * tomorrow will repeat blood culture * will plan for discharge tomorrow, as he has bacteremia, will prefer to give IV today and tomorrow morning * he will go with monsivais as per urology * medication reviewed as below * symptomatic treatment. Review of Systems - Review of Systems ENT: negative: Ear Pain, Ear Discharge, Nose Pain, Nose Discharge, Nose Congestion, Mouth Pain, Mouth Swelling, Throat Pain, Throat Swelling, Other Respiratory: negative: Cough, Dry, Shortness of Breath, Hemoptysis, SOB with Excertion, Pleuritic Pain, Sputum, Wheezing Cardiovascular: negative: chest pain, palpitations, orthopnea, paroxysmal nocturnal dyspnea, edema, light headedness, other Gastrointestinal: negative: Nausea, Vomiting, Abdominal Pain, Diarrhea, Constipation, Melena, Hematochezia, Other Genitourinary: negative: Dysuria, Frequency, Incontinence, Hematuria, Retention , Other Musculoskeletal: negative: Neck Pain, Shoulder Pain, Arm Pain, Back Pain, Hand Pain, Leg Pain, Foot Pain, Other Skin: negative: Rash, Lesions, Cheo, Bruising, Other - Medications/Allergies Allergies/Adverse Reactions: Allergies Allergy/AdvReac Type Severity Reaction Status Date / Time No Known Drug Allergies Allergy Verified 04/01/18 08:59 Medications: Current Medications Acetaminophen (Tylenol) 650 mg PO Q6H PRN PRN Reason: Fever/Mild Pain Last Admin: 04/02/18 21:13 Dose: 650 mg Hydrocodone Bitart/Acetaminophen ([place] 5/325) 1 tab PO Q4H PRN PRN Reason: Moderate Pain (4-6) Al Hydroxide/Mg Hydroxide (Maalox) 15 ml PO Q4H PRN PRN Reason: Heartburn or Indigestion Alprazolam (Xanax) 1 mg PO DAILY [facility] Last Admin: 04/03/18 09:15 Dose: Not Given Artificial Tears (Tears Naturale) 0 drop EA EYE PRN PRN PRN Reason: Dry Eyes Ascorbic Acid (Vitamin C) 500 mg PO DAILY [facility] Last Admin: 04/03/18 09:05 Dose: 500 mg Aspirin (Aspirin Chewable) 81 mg PO DAILY [facility] Last Admin: 04/03/18 09:06 Dose: 81 mg Bisacodyl (Dulcolax) 10 mg [place] DAILYPRN PRN PRN Reason: Constipation Carvedilol (Coreg) 12.5 mg PO BID [facility] Last Admin: 04/03/18 09:05 Dose: 12.5 mg Docusate Sodium (Colace) 100 mg PO DAILY [facility] Last Admin: 04/03/18 09:04 Dose: 100 mg Enoxaparin Sodium (Lovenox) 40 mg SC 09 [facility] Last Admin: 04/03/18 09:04 Dose: 40 mg Famotidine (Pepcid) 20 mg PO BID [facility] Last Admin: 04/03/18 09:06 Dose: 20 mg Ferrous Sulfate (Feosol) 325 mg PO DAILY [facility] Last Admin: 04/03/18 09:06 Dose: 325 mg Furosemide (Lasix) 40 mg PO DAILY [facility] Last Admin: 04/03/18 09:06 Dose: 40 mg Guaifenesin (Robitussin Sf) 200 mg PO Q4H PRN PRN Reason: Cough Hydralazine HCl (Apresoline) 10 mg SLOW IVP Q4H PRN PRN Reason: Systolic BP > 180 Levofloxacin 750 mg/ Device 150 mls @ 100 mls/hr IVPB 1100 [facility] Last Admin: 04/02/18 09:59 Dose: 150 mls Loperamide HCl (Imodium) 2 mg PO PRN PRN PRN Reason: Diarrhea/Loose Stools Loratadine (Claritin) 10 mg PO DAILYPRN PRN PRN Reason: Sinus Symptoms Losartan Potassium (Cozaar) 25 mg PO DAILY [facility] Last Admin: 04/03/18 09:05 Dose: 25 mg Magnesium Hydroxide (Milk Of Magnesium) 30 ml PO DAILYPRN PRN PRN Reason: Constipation Mineral Oil/White Petrolatum (Eucerin Cream) 0 gm TOP BIDPRN PRN PRN Reason: Dry Skin Nitroglycerin (Nitrostat) 0.4 mg SL Q5MIN PRN PRN Reason: Chest Pain Ondansetron HCl (Zofran Odt) 4 mg PO Q6H PRN PRN Reason: Nausea/Vomiting Ondansetron HCl (Zofran) 4 mg IVP Q6H PRN PRN Reason: Nausea/Vomiting Phenol (Chloraseptic [place] 180 Ml Bot) 0 ml PO PRN PRN PRN Reason: Sore Throat Polyethylene Glycol (Miralax) 17 gm PO DAILY [facility] Last Admin: 04/03/18 09:04 Dose: 17 gm Rosuvastatin Calcium (Crestor) 10 mg PO [facility] Last Admin: 04/02/18 21:15 Dose: 10 mg Saccharomyces Boulardii (Florastor) 250 mg PO DAILY [facility] Last Admin: 04/03/18 09:06 Dose: 250 mg Senna (Senokot) 2 tab PO HSPRN PRN PRN Reason: Constipation Sodium Chloride (Flush - Normal Saline) 10 ml IVF Q12HR [facility] Last Admin: 04/02/18 21:16 Dose: 10 ml Sodium Chloride (Flush - Normal Saline) 10 ml IVF PRN PRN PRN Reason: Saline Flush Sodium Chloride ([place] Nasal [place] 0.65%) 0 ml EA NARE QIDPRN PRN PRN Reason: Nasal Congestion Spironolactone (Aldactone) 25 mg PO QAM-WM [facility] Last Admin: 04/03/18 09:04 Dose: 25 mg Tamsulosin HCl (Flomax) 0.4 mg PO [facility] Last Admin: 04/02/18 21:15 Dose: 0.4 mg Zolpidem Tartrate (Ambien) 5 mg PO HSPRN PRN PRN Reason: Insomnia
[2018-04-03] MEDS: Acetaminophen 325 MG TAB PO PRN ×2 (11:06→20:51)
[2018-04-03] MEDS: Rosuvastatin 10 MG TAB PO SCH (20:51)
[2018-04-03] MEDS: Tamsulosin HCl 0.4 MG CAP PO SCH (20:52)
[2018-04-04] MEDS: Enoxaparin Sodium 40 MG/0.4 ML SYRINGE SC SCH (09:54)
[2018-04-04] MEDS: ALPRAZolam 1 MG TAB PO SCH (09:54)
[2018-04-04] MEDS: Polyethylene Glycol 3350 17 GM Packet PO SCH (09:55)
[2018-04-04] MEDS: Spironolactone 25 MG TAB PO SCH (09:58)
[2018-04-04] MEDS: Furosemide 40 MG TAB PO SCH (09:59)
[2018-04-04] MEDS: Ascorbic Acid 500 mg Chewable Tablet PO SCH (09:59)
[2018-04-04] MEDS: Ferrous Sulfate 325 MG TAB PO SCH (09:59)
[2018-04-04] MEDS: Famotidine 20 MG TAB PO SCH (09:59)
[2018-04-04] MEDS: Losartan 25 MG TAB PO SCH (10:00)
[2018-04-04] MEDS: Acetaminophen 325 MG TAB PO PRN (10:10)
[2018-04-04] MEDS: Carvedilol 6.25 MG TAB PO SCH (10:11)
[2018-04-04] MEDS: Docusate 100 MG CAP PO SCH (10:11)
[2018-04-04] MEDS: Saccharomyces boulardii 250 MG CAP PO SCH (10:11)
--- NOTE | 2018-04-04 10:54 | PDOC.PN ---
- Subjective Encounter Start Date: 04/04/18 Encounter Start Time: 07:30 Patient seen and examined. No new complaints. No overnight events - Objective Resuscitation Status: Resuscitation Status FULL:Full Resuscitation MAR Reviewed: Yes Vital Signs & Weight: Vital Signs (12 hours) Temp Pulse Pulse Pulse Resp BP BP 04/04/18 10:11 160/97 H 04/04/18 08:08 74 80 156/84 H 04/04/18 07:54 98.3 F 82 16 04/04/18 03:14 98.3 F 79 20 04/03/18 23:45 97.9 F 73 20 BP BP Pulse Ox 04/04/18 10:11 04/04/18 08:08 161/83 H 04/04/18 07:54 156/84 H 95 04/04/18 03:14 146/80 H 97 04/03/18 23:45 138/92 H 97 Weight Weight 211 lb 12.8 oz I&O: 04/03/18 04/04/18 04/05/18 06:59 06:59 06:59 Intake Total 2049 1999 Output Total 3100 2600 Balance -1050 -600 Result Diagrams: 04/03/18 05:42 04/03/18 05:42 EKG Reviewed by me: Yes (nsr) Phys Exam - Physical Examination Constitutional: NAD HEENT: PERRLA, moist MMs, sclera anicteric Neck: no JVD, supple Respiratory: no wheezing, no rales, no rhonchi Cardiovascular: RRR, no significant murmur, no rub surgical site clean Gastrointestinal: soft, non-tender, no distention, positive bowel sounds Musculoskeletal: no edema, pulses present monsivais+ Neurological: non-focal, normal sensation, moves all 4 limbs Lymphatic: no nodes Psychiatric: normal affect, A&O x 3 Skin: no rash, normal turgor Dx/Plan (1) Acute prostatitis Code(s): N41.0 - ACUTE PROSTATITIS Status: Acute (2) Bacteremia due to Pseudomonas Code(s): R78.81 - BACTEREMIA Status: Acute (3) Sepsis Code(s): A41.9 - SEPSIS, UNSPECIFIED ORGANISM Status: Acute Qualifiers: Sepsis type: Pseudomonas Qualified Code(s): A41.52 - Sepsis due to Pseudomonas (4) UTI (urinary tract infection) due to urinary indwelling catheter Code(s): T83.511A - I/I REACT D/T INDWELLING URETHRAL CATHETER, INIT; N39.0 - URINARY TRACT INFECTION, SITE NOT SPECIFIED Status: Acute Qualifiers: Indwelling urinary catheter type: indwelling urethral catheter (5) Anemia, normocytic normochromic Code(s): D64.9 - ANEMIA, UNSPECIFIED Status: Chronic (6) Anxiety Code(s): F41.9 - ANXIETY DISORDER, UNSPECIFIED Status: Chronic (7) CAD (coronary artery disease) Code(s): I25.10 - ATHSCL HEART DISEASE OF [place] CORONARY ARTERY W/O ANG PCTRS Status: Chronic (8) Dyslipidemia Code(s): E78.5 - HYPERLIPIDEMIA, UNSPECIFIED Status: Chronic (9) Hypertension Code(s): I10 - ESSENTIAL (PRIMARY) HYPERTENSION Status: Chronic (10) Ischemic cardiomyopathy Code(s): I25.5 - ISCHEMIC CARDIOMYOPATHY Status: Chronic - Plan cont current plan of care, plan discussed w/ family, monsivais catheter, continue antibiotics * pt has responded to levaquin * will give cipro on discharge * follow up with urology * medication reviewed as below * symptomatic treatment * see discharge summery. Review of Systems - Review of Systems Eyes: negative: Pain, Vision Change, Conjunctivae Inflammation, Eyelid Inflammation, Redness, Other ENT: negative: Ear Pain, Ear Discharge, Nose Pain, Nose Discharge, Nose Congestion, Mouth Pain, Mouth Swelling, Throat Pain, Throat Swelling, Other Respiratory: negative: Cough, Dry, Shortness of Breath, Hemoptysis, SOB with Excertion, Pleuritic Pain, Sputum, Wheezing Cardiovascular: negative: chest pain, palpitations, orthopnea, paroxysmal nocturnal dyspnea, edema, light headedness, other Gastrointestinal: negative: Nausea, Vomiting, Abdominal Pain, Diarrhea, Constipation, Melena, Hematochezia, Other Genitourinary: negative: Dysuria, Frequency, Incontinence, Hematuria, Retention , Other Musculoskeletal: negative: Neck Pain, Shoulder Pain, Arm Pain, Back Pain, Hand Pain, Leg Pain, Foot Pain, Other Skin: negative: Rash, Lesions, Cheo, Bruising, Other - Medications/Allergies Allergies/Adverse Reactions: Allergies Allergy/AdvReac Type Severity Reaction Status Date / Time No Known Drug Allergies Allergy Verified 04/01/18 08:59 Medications: Current Medications Acetaminophen (Tylenol) 650 mg PO Q6H PRN PRN Reason: Fever/Mild Pain Last Admin: 04/04/18 10:10 Dose: 650 mg Hydrocodone Bitart/Acetaminophen ([place] 5/325) 1 tab PO Q4H PRN PRN Reason: Moderate Pain (4-6) Al Hydroxide/Mg Hydroxide (Maalox) 15 ml PO Q4H PRN PRN Reason: Heartburn or Indigestion Alprazolam (Xanax) 1 mg PO DAILY [facility] Last Admin: 04/04/18 09:54 Dose: Not Given Artificial Tears (Tears Naturale) 0 drop EA EYE PRN PRN PRN Reason: Dry Eyes Ascorbic Acid (Vitamin C) 500 mg PO DAILY [facility] Last Admin: 04/04/18 09:59 Dose: 500 mg Aspirin (Aspirin Chewable) 81 mg PO DAILY [facility] Last Admin: 04/04/18 10:11 Dose: 81 mg Bisacodyl (Dulcolax) 10 mg AK DAILYPRN PRN PRN Reason: Constipation Carvedilol (Coreg) 12.5 mg PO BID [facility] Last Admin: 04/04/18 10:11 Dose: 12.5 mg Docusate Sodium (Colace) 100 mg PO DAILY [facility] Last Admin: 04/04/18 10:11 Dose: 100 mg Enoxaparin Sodium (Lovenox) 40 mg SC 0900 [facility] Last Admin: 04/04/18 09:54 Dose: 40 mg Famotidine (Pepcid) 20 mg PO BID [facility] Last Admin: 04/04/18 09:59 Dose: 20 mg Ferrous Sulfate (Feosol) 325 mg PO DAILY [facility] Last Admin: 04/04/18 09:59 Dose: 325 mg Furosemide (Lasix) 40 mg PO DAILY [facility] Last Admin: 04/04/18 09:59 Dose: 40 mg Guaifenesin (Robitussin Sf) 200 mg PO Q4H PRN PRN Reason: Cough Hydralazine HCl (Apresoline) 10 mg SLOW IVP Q4H PRN PRN Reason: Systolic BP > 180 Levofloxacin 750 mg/ Device 150 mls @ 100 mls/hr IVPB 1100 [facility] Last Admin: 04/03/18 11:06 Dose: 150 mls Loperamide HCl (Imodium) 2 mg PO PRN PRN PRN Reason: Diarrhea/Loose Stools Loratadine (Claritin) 10 mg PO DAILYPRN PRN PRN Reason: Sinus Symptoms Losartan Potassium (Cozaar) 25 mg PO DAILY [facility] Last Admin: 04/04/18 10:00 Dose: 25 mg Magnesium Hydroxide (Milk Of Magnesium) 30 ml PO DAILYPRN PRN PRN Reason: Constipation Mineral Oil/White Petrolatum (Eucerin Cream) 0 gm TOP BIDPRN PRN PRN Reason: Dry Skin Nitroglycerin (Nitrostat) 0.4 mg SL Q5MIN PRN PRN Reason: Chest Pain Ondansetron HCl (Zofran Odt) 4 mg PO Q6H PRN PRN Reason: Nausea/Vomiting Ondansetron HCl (Zofran) 4 mg IVP Q6H PRN PRN Reason: Nausea/Vomiting Phenol (Chloraseptic [place] 180 Ml Bot) 0 ml PO PRN PRN PRN Reason: Sore Throat Polyethylene Glycol (Miralax) 17 gm PO DAILY [facility] Last Admin: 04/04/18 09:55 Dose: 17 gm Rosuvastatin Calcium (Crestor) 10 mg PO [facility] Last Admin: 04/03/18 20:51 Dose: 10 mg Saccharomyces Boulardii (Florastor) 250 mg PO DAILY [facility] Last Admin: 04/04/18 10:11 Dose: 250 mg Senna (Senokot) 2 tab PO HSPRN PRN PRN Reason: Constipation Sodium Chloride (Flush - Normal Saline) 10 ml IVF Q12HR [facility] Last Admin: 04/04/18 10:07 Dose: 10 ml Sodium Chloride (Flush - Normal Saline) 10 ml IVF PRN PRN PRN Reason: Saline Flush Sodium Chloride (Purple Sage Nasal [place] 0.65%) 0 ml EA NARE QIDPRN PRN PRN Reason: Nasal Congestion Spironolactone (Aldactone) 25 mg PO QAM-WM [facility] Last Admin: 04/04/18 09:58 Dose: 25 mg Tamsulosin HCl (Flomax) 0.4 mg PO [facility] Last Admin: 04/03/18 20:52 Dose: 0.4 mg Zolpidem Tartrate (Ambien) 5 mg PO HSPRN PRN PRN Reason: Insomnia
[2018-04-04 11:41] VITALS: BP 151/84; TEMP 98.2
--- NOTE | 2018-04-04 13:13 | DIS ---
DATE OF ADMISSION: 04/01/2018 DATE OF DISCHARGE: 04/04/2018 PRIMARY CARE PHYSICIAN: Dr. Shay Llanos. DISCHARGE DISPOSITION: Home. PRIMARY DISCHARGE DIAGNOSES: 1. Sepsis due to Pseudomonas. 2. Bacteremia due to Pseudomonas. 3. Urinary tract infection due to Pseudomonas related with indwelling Moore catheter, acute prostati tis. SECONDARY DISCHARGE DIAGNOSES: History of ischemic cardiomyopathy with LifeVest, hypertension, dysli pidemia, coronary artery disease with recent coronary artery bypass graft, anxiety disorder, normocyt ic normochromic anemia. PRIMARY PROCEDURE AND OPERATION: None. RADIOLOGICAL INVESTIGATION: Chest x-ray normal. SIGNIFICANT LABORATORY DATA: WBC 9.3, hemoglobin 9.8, platelet 401. INR 1.2, sodium 136, potassium 3.5, BUN 10, creatinine 1.04, glucose 118, calcium 8.7. LFT normal. CK 35. Urinalysis suggestive o f UTI. Urine culture grew Pseudomonas. Blood culture positive for Pseudomonas. DISCHARGE MEDICATIONS: Xanax 1 mg p.o. daily, vitamin C 500 mg p.o. daily, aspirin 81 mg p.o. daily, Coreg 12.5 mg p.o. b.i.d., cetirizine 10 mg p.o. daily, Colace 100 mg p.o. daily, ferrous sulfate 32 5 mg p.o. daily, Lasix 40 mg p.o. daily, [place] 5 one tablet q.4 hours p.r.n., Cozaar 25 mg p.o. daily , MiraLax 17 grams p.o. daily, Crestor 10 mg p.o. at bedtime, Aldactone 25 mg p.o. daily, Flomax 0.4 mg p.o. at bedtime. New medications: Cipro 500 mg twice daily for at least 1 month, Florastor 250 mg p.o. daily. CONTRAINDICATIONS: None. CODE STATUS: FULL CODE. INPATIENT CONSULTANTS: Dr. Bryant Posey was consulted while in hospital. Dr[facility]. TEST RESULTS PENDING ON DISCHARGE: None. ALLERGIES: No known drug allergy. DISCHARGE PLAN: Post hospital, the patient is instructed to follow up with primary care physician in 1 week. The patient is also instructed to follow up with Dr. Bryant Posey as an outpatient basis for voiding trial. Duration of oral antibiotic therapy for prostatitis will defer to Urology. HOSPITAL COURSE: A 62-year-old male who was recently admitted in our hospital for CABG, which was do ne by Dr. Desai. After surgery, when he was at telemetry floor and when they removed Moore cat heter, he had retention of urine and that is why he had another Moore catheter placed and Urology rec ommended to discharge him with the Moore catheter and outpatient voiding trial. After discharge from that hospitalization, the patient went to see Urology and they did a voiding tri al and Moore catheter was discontinued on Wednesday. On , the patient started having retenti on. He was not able to pee and that was making him discomfort and that is why he went to Dr. Posey's office and the second time, Moore catheter was placed. After Moore catheter was placed, the patient started having fever with chills, rigors and that is why he came to emergency room as per nettie lawler. In the emergency room, the patient was appeared sepsis. His urinalysis was consistent with UTI. He had leukocytosis, high grade fever. He was admitted to telemetry floor. He was given broad spectrum antibiotic therapy with vancomycin and Zosyn. The next day, his blood culture was positive for Pseu domonas and urine culture was also positive for Pseudomonas. Vancomycin was discontinued and we star maritza on Zosyn and levofloxacin. Subsequently, when we got culture and sensitivity result, we disconti nued Zosyn and only continue with levofloxacin. The patient continued to improve and he was complete ly afebrile for almost 48 hours. He is clinically doing very well. His blood pressure is stable. Jorge steinberg resumed all his home medication while in hospital as well as upon discharge. Given his prostatitis, he will need at least one month of antibiotic therapy. Upon discharge, we pre scribed Cipro and Florastor. Rest of medication was continued as per previous. The patient is plann ed for discharge with Moore catheter and he will follow up with Urology as an outpatient basis for vo iding trial. His surgical site is clean and healthy. The patient is medically stable for discharge today. The patient is seen and examined at bedside today. Plan of care discussed with the patient's an d patient. Please see my progress note from today for further details. Total time spent on discharge day 31 minutes.
== END 2018-04-04 13:30 | disposition home or self-care (01) | DRG 698 ==
LOC: ERS 00:15 → 2SE 03:33
PROVIDERS: ADMIT Hospitalist; ATTEND Hospitalist
DX: T83.518A Infection and inflammatory reaction due to other urinary catheter, initial encounter (principal); A41.52 Sepsis due to Pseudomonas; N39.0 Urinary tract infection, site not specified; N41.0 Acute prostatitis; I50.22 Chronic systolic (congestive) heart failure; I25.10 Atherosclerotic heart disease of native coronary artery without angina pectoris; I25.5 Ischemic cardiomyopathy; I11.0 Hypertensive heart disease with heart failure; E78.5 Hyperlipidemia, unspecified; F41.9 Anxiety disorder, unspecified; K59.00 Constipation, unspecified; D64.9 Anemia, unspecified; Z79.82 Long term (current) use of aspirin; Z79.899 Other long term (current) drug therapy; Z95.1 Presence of aortocoronary bypass graft
CPT/HCPCS: 36415; 71045; 80048; 80053; 81003; 81015; 82550; 83605; 85025; 85610; 85730; 87040; 87077; 87086; 87149; 87186; 93005; 93798; 96365; 96367; A4216; G8978-GP-CJ; G8979-GP-CI; G8987-GO-CI; G8988-GO-CI; G8989-GO-CI; J1650; J1956; J2405; J2543; J3370; J7050

== ENCOUNTER 2018-11-10 20:36 | Observation (INO) | payer BC ==
[2018-11-10 21:03] LABS: #Basophils 0.1 thou/uL (0.0-0.2); #Eosinphils 0.1 thou/uL (0.0-0.7); #Lymphocytes 4.6 thou/uL (1.20-3.40); #Monocytes 1.2 thou/uL (0.11-0.59); #Neutrophils 9.9 thou/uL (1.40-6.50); %Basophils 0.8 % (0.0-1.0); %Eosinophils 0.9 % (0.0-10.0); %Lymphocytes 28.8 % (21.0-51.0); %Monocytes 7.6 % (0.0-10.0); %Neutrophils 61.9 % (42.0-75.0); Hemoglobin 13.3 g/dL (14.0-18.0); Mean Corpuscular HGB CONC 34.1 g/dL (32.0-36.0); Mean Corpuscular Volume 90.9 fL (78.0-98.0); Mean Platelet Volume 7.4 fL (7.4-10.4); Platelet Count 331 thou/uL (130-400); RBC Distribution Width 11.1 % (11.5-14.5); Red Blood Cell (RBC) Count 4.29 mill/uL (4.70-6.10); White Blood Cell (WBC) Count 15.9 thou/uL (4.8-10.8)
[2018-11-10 21:24] LABS: ALT (SGPT) 25 U/L (8-55); AST (SGOT) 17 U/L (5-34); Alkaline Phosphatase 75 U/L (40-150); Anion Gap 12 mmol/L (10-20); BUN (Urea Nitrogen) 14 mg/dL (8.4-25.7); Bilirubin, Total 0.2 mg/dL (0.2-1.2); Calc. Creatinine Clearance 0 mL/min (70-130); Calcium 9.1 mg/dL (7.8-10.44); Carbon Dioxide 24 mmol/L (23-31); Chloride 107 mmol/L (98-107); Estimated GFR-MDRD 63; Globulin 2.8 g/dL (2.4-3.5); Glucose 140 mg/dL (80-115); Potassium 4.1 mmol/L (3.5-5.1); Protein, Total 6.8 g/dL (5.8-8.1); Sodium 139 mmol/L (136-145)
--- NOTE | 2018-11-10 21:32 | RAD ---
PORTABLE CHEST: 11/10/18 HISTORY: Syncope. Lungs are clear. No infiltrate or vascular congestion . Heart size within normal range. Postop sterno chon changes. IMPRESSION: No acute findings. POS: [facility]
[2018-11-10] MEDS ORDERED: cefTRIAXone\\ROCEPHIN 2 GM VIAL ONE (22:39)
[2018-11-10] MEDS ORDERED: Sodium Chloride 0.9% 100 ML ONE (22:43)
[2018-11-11] MEDS ORDERED: Acetaminophen 325 MG TAB PO PRN (00:24)
[2018-11-11] MEDS ORDERED: Ondansetron ODT 4 MG TAB PO PRN (00:24)
[2018-11-11 00:59] LABS: Hemoglobin 12.9 g/dL (14.0-18.0)
[2018-11-11] MEDS ORDERED: Carvedilol 25 MG TAB PO SCH ×2 (01:00→08:00)
--- NOTE | 2018-11-11 01:11 | HP ---
CHIEF COMPLAINT: Rectal bleeding. HISTORY OF PRESENT ILLNESS: Mr. Portillo is a pleasant 63-year-old man presenting with complaints of persistent rectal bleeding following a prostate biopsy done by Dr. Posey at approximately 3:00 p.m. today. The patient states he first noted blood was running down his leg. Later on, he attempted to have 3 bowel movements with no stool present and noted bright red blood. The patient denies experiencing any pain. At one point, he had a syncopal episode while he sat on the toilet. His believes he may have hit the counter due to an abrasion on the bridge of his nose, but he sustained no apparent major injuries. He was found slumped on the toilet and had not sustained any head injuries. The patient denies having any symptoms prior to fainting such as chest pain or shortness of breath. The patient had one episode of vomiting after coming too, and has had no further issues with vomiting since. He is not on any blood thinners. It appears that a biopsy was done due to a strong family history of prostate cancer. REVIEW OF SYSTEMS: Mr. Portillo states he feels well himself at this moment. He has been able to tolerate food and liquids since being in the ED. He has had improvement in the rectal bleeding. He denies having any chest pain, palpitations, or shortness of breath. He has not had any fevers, chills, or sweats. No headaches or dizziness. Denies having any abdominal pain or cramping. No hematuria, urgency, or frequency. Denies having any headaches or dizziness. All other review of systems are negative. PAST MEDICAL HISTORY: 1. Hyperlipidemia. 2. High cholesterol. 3. Hypertension. PAST SURGICAL HISTORY: 1. Retinal detachment. 2. Left eye cataract surgery. 3. CABG x3. 4. Cholecystectomy. SOCIAL HISTORY: The patient lives with his . He is fully independent. Denies any tobacco use or alcohol use. No illicit drug use. ALLERGIES: NO KNOWN DRUG ALLERGIES. CURRENT MEDICATIONS: 1. Aspirin 81 mg p.o. daily. 2. Spironolactone 25 mg p.o. daily. 3. Tamsulosin 0.4 mg p.o. daily. 4. Carvedilol 25 mg p.o. twice daily. 5. Losartan 25 mg p.o. daily. 6. Alprazolam 1 mg p.r.n. 7. Furosemide 40 mg p.o. daily. 8. Finasteride 5 mg p.o. daily. 9. Crestor 10 mg p.o. daily. 10. Docusate sodium 100 mg p.o. daily. 11. Cetirizine 10 mg p.o. daily. PHYSICAL EXAMINATION: GENERAL: The patient appears well developed, well nourished, and is in no acute distress. SKIN: Without any pallor or jaundice. No rash. VITAL SIGNS: Temperature 97.8, pulse 79, respirations 18, blood pressure 119/73, O2 saturation 97% on room air. HEENT: Normocephalic and atraumatic. Pupils are equal, round, and reactive to light. NECK: Supple. No lymphadenopathy. Very tiny abrasion on the bridge of his nose. No bleeding. No bone deformity or tenderness. No swelling. LUNGS: Clear to auscultation bilaterally. CARDIAC: Regular rate and rhythm. ABDOMEN: Soft, nontender, nondistended. Normoactive bowel sounds present. EXTREMITIES: No edema or swelling. No calf tenderness. NEUROLOGIC: Alert and oriented x3. LABORATORY DATA: As mentioned above. His white blood count is 15.9, hemoglobin 13.3, hematocrit 39, platelets 331. Sodium 139, potassium 4.1, BUN 14, creatinine 1.18, GFR 63, glucose 140. LFTs unremarkable. Troponin I negative. BNP . IMAGING DATA: Chest x-ray, 11/10/2018. No acute findings. IMPRESSION AND PLAN: Mr. Portillo is being admitted for management of the following. 1. Rectal bleeding. He is status post prostate biopsy earlier today by Dr. Posey. Per discussion between ED physician and as well as Dr. Cuenca, the patient will be admitted for serial H and H. 2. Hypertension. Resume home medications. Monitor blood pressure. 3. Chronic systolic heart failure. Resume Coreg. BNP normal. 4. Hyperlipidemia. Resume home medications. 5. Gastrointestinal prophylaxis. 6. Deep venous thrombosis prophylaxis. Mechanical SCDs only. We will hold any pharmaco-prophylaxis given active bleeding. 7. Full code status. Surrogate decision maker is his , Mary Lou Portillo. The patient's case was discussed with Dr. Hunt, who agrees with plan of care as described above. Job ID: [id number]
[2018-11-11 03:33] LABS: #Basophils 0.1 thou/uL (0.0-0.2); #Lymphocytes 2.9 thou/uL (1.20-3.40); #Neutrophils 9.9 thou/uL (1.40-6.50); %Basophils 0.9 % (0.0-1.0); %Eosinophils 0.2 % (0.0-10.0); %Lymphocytes 20.7 % (21.0-51.0); %Monocytes 7.1 % (0.0-10.0); %Neutrophils 71.1 % (42.0-75.0); Hemoglobin 13.4 g/dL (14.0-18.0); Mean Corpuscular HGB CONC 34.9 g/dL (32.0-36.0); Mean Corpuscular Hemoglobin 31.9 pg (27.0-31.0); Mean Corpuscular Volume 91.5 fL (78.0-98.0); Mean Platelet Volume 7.5 fL (7.4-10.4); Platelet Count 319 thou/uL (130-400); RBC Distribution Width 11.1 % (11.5-14.5); White Blood Cell (WBC) Count 13.9 thou/uL (4.8-10.8)
[2018-11-11 03:53] LABS: Anion Gap 11 mmol/L (10-20); BUN (Urea Nitrogen) 18 mg/dL (8.4-25.7); Calc. Creatinine Clearance 0 mL/min (70-130); Carbon Dioxide 24 mmol/L (23-31); Chloride 106 mmol/L (98-107); Estimated GFR-MDRD 79; Glucose 161 mg/dL (80-115); Potassium 4.1 mmol/L (3.5-5.1); Sodium 137 mmol/L (136-145)
[2018-11-11 06:14] LABS: Hemoglobin 12.5 g/dL (14.0-18.0)
[2018-11-11] MEDS ORDERED: Famotidine 20 MG TAB PO SCH (09:00)
--- NOTE | 2018-11-11 14:09 | CON ---
DATE OF CONSULTATION: 11/11/2018 REASON FOR CONSULTATION: 1. Rectal bleeding after prostate needle biopsy. 2. Syncopal episode at home. PROBLEM LIST: Elevated PSA, R97.20 Family history of malignant neoplasm of prostate in father, Z80.42 Prostate nodule with urinary obstruction, N40.3, N13.8 Hypertrophy of prostate with urinary obstruction, N40.1, N13.8 Urinary retention, R33.9 Rectal bleeding, K62.5 Chronic anticoagulation, Z79.01 S/P CABG (coronary artery bypass graft), Z95.1 Vasovagal syncope, R55 HISTORY OF PRESENT ILLNESS: Mr. Nain Portillo Junior is a very pleasant 63-year-old white male known to me for a history of elevated PSA, enlarged nodular prostate gland and family history of prostate cancer in his father. He underwent multiple prostate needle biopsy on 11/10/2018. He had minimal to no post biopsy rectal bleeding and no signs of vasovagal symptoms in the clinic. The patient was subsequently discharged to home with plans for followup in about 2 weeks. Prior to the biopsy, the patient was on Cefzil, which had been taken for more than 24 hours prior to the biopsy. The patient reports that after arriving at home, he had a bowel movement, which contained some blood and then a couple of more small bowel movements that also contain blood. During the course of sitting on the toilet, he had an apparent vasovagal episode and passed out. He did not injure himself or struck any parts of his head or extremities. Apparently, he recovered from the vasovagal episode after vomiting, which would be the normal course. The patient subsequently presented to the [facility] Emergency Department and underwent evaluation by the ER personnel. He was admitted and serial H and H were obtained. The patient has demonstrated stable vital signs. No cardiac events and has had a stable hematocrit overnight. PAST MEDICAL HISTORY: 1. Urinary retention following coronary artery bypass graft in March of 2018. 2. Prostatic hyperplasia with obstruction. 3. Coronary arteriosclerosis, status post coronary artery bypass graft. 4. Family history of prostate cancer in the patient's father. 5. History of left eye surgery x2. PAST SURGICAL HISTORY: 1. Right knee arthroscopy. 2. Laparoscopic cholecystectomy. 3. Coronary artery bypass graft on 03/21/2018. 4. Left eye surgery x2. FAMILY MEDICAL HISTORY: The patient's father had history of coronary artery disease and also prostate cancer. The patient's maternal grandfather also had prostate cancer, so he has genetic risks from two sides. SOCIAL HISTORY: The patient is a lifelong nonsmoker. He is employed in the [employer]. There is no history of substance abuse. He does occasionally consume alcohol, but there is no smoking history. ALLERGIES: NO KNOWN DRUG ALLERGIES. REVIEW OF SYSTEMS: NEUROLOGIC: Positive for vasovagal type event at home with passing out, loss of consciousness, and emesis. CARDIAC: The patient had 2 cardiac events in the past and has had a coronary artery bypass grafting in the last year. GASTROINTESTINAL: Positive for blood per rectum on this admission. Only prior GI history is that of a cholecystectomy. The patient apparently had an emesis episode yesterday, but this was not bloody. MUSCULOSKELETAL: Negative for injury or other orthopedic injuries. The patient did have a knee cap injured as a child and had a right patellar injury with cartilage injury as a teen. He has undergone previous arthroscopy procedures. ENDOCRINOLOGIC: Negative. GENITOURINARY: Positive for a longstanding history of obstructive voiding symptoms, enlarged prostate gland. Postoperative to his CABG, he had a urinary retention episode requiring evaluation. The patient has a massively enlarged prostate gland on ultrasound evaluation as noted yesterday, also history of elevated PSA, which is more or less chronic in nature. PHYSICAL EXAMINATION: VITAL SIGNS: Per the ER chart, pulse is 84, respirations 22. HEAD, EYES, EARS, NOSE, AND THROAT: Extraocular movements are intact. Sclerae are anicteric. There are no signs of injury for contusion. Oropharynx is clear. NECK: Supple. LUNGS: Clear to auscultation bilaterally. The chest shows a well-healed median sternotomy scar. There is no crepitance of the median sternotomy scar. HEART: There is a regular rate and rhythm. The patient's classroom monitor assessment shows the patient to be in probable sinus rhythm. ABDOMEN: Soft and nontender. The patient does not report nausea symptoms. The suprapubic area shows no significant fullness. The patient is on self catheterization at home. BACK: No decubitus present. GENITOURINARY: Testes are present in the scrotum bilaterally. Phallus is without lesion. Digital rectal examination finds minimal clotted blood. Full digital rectal examination was not completed due to the recent biopsy. EXTREMITIES: Show the patient has undergone previous vein harvest. Otherwise, no significant edema or other abnormalities in the extremities. No contusions present. LABORATORY STUDIES: Admission white count 15.9. White count today 13.9, hemoglobin has been stable with hemoglobin by standard comprehensive blood count stable at 13.4 overnight from 13.3 yesterday. On the H and H test, it was 12.5 this morning evidently after some hydration. The patient shows no percentile neutrophil left shift. However, ANC is elevated due to the increased number of white cells at 9.9 yesterday and today. There was relative lymphocytosis yesterday, which appears to be improved. Serum chemistry showed the patient's potassium at 4.1 this morning. BUN at 18 and creatinine at 0.97, glucose is 161. ASSESSMENT: 1. Vasovagal syndrome with the patient passing out yesterday. This complicates about 1% of prostate needle biopsies and usually occurs in the office immediately in conjunction with the biopsy. This is not a seizure disorder based on the presentation. This is self-resolving and requires no further intervention or evaluation. 2. Concerns for sepsis. The patient was on appropriate antibiotic coverage and previously received a long course of antibiotics for a period of a month and was on antibiotics prior to his biopsy for more than 24 hours and we will continue on his previously prescribed Cefzil at discharge. 3. Urinary retention. The patient is on self-intermittent catheterization at home and will continue on that. 4. Upper rectum bleeding. The upper rectum bleeding is generally self-limiting with prostate needle biopsies as these are relatively small needle type sticks. Occasionally, an artery is involved and reproduces some bleeding, which is measurable as in Mr. Portillo's case. At present time, he does not appear to be experiencing any active bleeding. Appears hemodynamically stable and will be suitable for discharge from our standpoint. Bleeding in this patient's case probably relates to not suspending his aspirin early enough for the procedure, which is generally recommend one week period of abstinence. The patient in this case continued aspirin until the Wednesday prior to the biopsy, which is only 4 days of abstinence. In this type of case, the bleeding is evident. A rectal tamponade balloon is the standard of care and would quell almost any bleeding usually with dual time for an inflated rectal tamponade balloon at 90 mL for a period of approximately 30 minutes in most cases or twice the clotting time if it is known. This would ordinarily allow outpatient management. The patient will follow up in my office in 2 weeks' time for pathology followup from his prostate needle biopsy. TIME SPENT: Over 70 minutes of initial evaluation and assessment time was spent in the care of this patient, over of which was in face to face evaluation or in coordination of care, or in communication with the patient's family and staff regarding care, exclusive of any procedures performed, [id number]. Job ID: [id number] [id number]
[2018-11-11] MEDS ORDERED: Rosuvastatin 10 MG TAB PO SCH (21:00)
[2018-11-11] MEDS ORDERED: Tamsulosin HCl 0.4 MG CAP PO SCH (21:00)
--- NOTE | 2018-11-12 00:45 | DIS ---
DATE OF ADMISSION: 11/10/2018 DATE OF DISCHARGE: 11/11/2018 ALLERGIES: NO KNOWN DRUG ALLERGIES. CHIEF COMPLAINT: Rectal bleeding, syncope. FINAL DIAGNOSES: 1. Status post prostate biopsy on 11/10/[address] Posey. 2. Rectal bleeding secondary to above, resolved, hemoglobin stable. 3. Vasovagal syncope, resolved. 4. Coronary artery disease, status post coronary artery bypass graft in 03/2018. 5. Chronic systolic congestive heart failure with ejection fraction 45%, stable. PROCEDURES PERFORMED: None. LABORATORY RESULTS: Initial CBC showed white blood cell count of 15.9, hemoglobin of 13.3, and hematocrit 39. Sequential H and H showed hemoglobin 12.9, 13.4, and 12.5 respectively. IMAGING STUDIES: Chest x-ray showed no acute findings. CONSULTATION: Dr. Posey, Urology. HOSPITAL COURSE: Mr. Portillo is a very pleasant 63-year-old male who presented to the hospital yesterday after having an episode of rectal bleeding. Earlier that day around 3:00 p.m., he did have a prostate biopsy with Dr. Posey. Later in the day, the patient attempted to have a bowel movement, and noticed that bright red blood was running down his leg, he did also notice bright red blood in the toilet. The patient slumped forward and had a syncopal episode while he was on the toilet. He did not suffer any injuries. The patient's brought him to the ER for further workup and treatment. As mentioned, serial hemoglobin and hematocrit were stable. His bleeding did resolve and he has had no further episodes. Apparently, the patient was supposed to hold his aspirin 5 to 7 days prior to his procedure and only held the aspirin for [address] Posey consulted on the patient and he has been cleared for discharge. PHYSICAL EXAMINATION: VITAL SIGNS: Blood pressure 123/77, O2 saturation 98% on room air, pulse equals 70 and sinus. GENERAL: The patient is a well-appearing male, awake and alert, in no acute distress. HEENT: Atraumatic and normocephalic. NECK: No JVD, no carotid bruits. RESPIRATORY: Regular respiratory rate and pattern, clear to ausculation bilaterally. CARDIOVASCULAR: S1 and S2, regular rate and rhythm. No appreciable murmurs, rubs, or gallops. GI: Soft, normal bowel sounds, nontender. EXTREMITIES: No edema. +2 DP pulses bilaterally. NEUROLOGIC: Nonfocal. SKIN: Appears warm and dry, no rashes. CONDITION AT DISCHARGE: Stable. DISCHARGE MEDICATIONS: The patient will be discharged home on his current home medication regimen, which includes; 1. Spironolactone 25 mg daily. 2. Tamsulosin 0.4 mg daily. 3. Carvedilol 25 mg p.o. b.i.d. 4. Losartan 25 mg daily. 5. Alprazolam 1 mg p.r.n. 6. Lasix 40 mg p.o. daily. 7. Finasteride 5 mg p.o. daily. 8. Crestor 10 mg at bedtime. 9. Docusate sodium 100 mg p.o. daily p.r.n. 10. Cetirizine 10 mg p.o. daily. As mentioned, the patient will be holding his aspirin for at least 1 week. He will inform Dr. Posey if any further bleeding. DISCHARGE DISPOSITION: Home. PLAN: Mr. Portillo will continue followup with Dr. Posey. Biopsy results pending regarding his prostate biopsy. He will contact their office with any further issues. Job ID: [id number]
== END 2018-11-11 11:50 | disposition home or self-care (01) ==
LOC: ERS 20:36 → ERHOLD 22:00
PROVIDERS: ADMIT Hospitalist; ATTEND Hospitalist
DX: K62.5 Hemorrhage of anus and rectum (principal); R55 Syncope and collapse; I25.10 Atherosclerotic heart disease of native coronary artery without angina pectoris; I11.0 Hypertensive heart disease with heart failure; I50.22 Chronic systolic (congestive) heart failure; E78.00 Pure hypercholesterolemia, unspecified; N40.1 Benign prostatic hyperplasia with lower urinary tract symptoms; N13.8 Other obstructive and reflux uropathy; R33.8 Other retention of urine; Z95.1 Presence of aortocoronary bypass graft; Z90.49 Acquired absence of other specified parts of digestive tract; Z79.82 Long term (current) use of aspirin; Z79.2 Long term (current) use of antibiotics; Z79.899 Other long term (current) drug therapy; Z98.890 Other specified postprocedural states
CPT/HCPCS: 36415; 71045; 80048; 80053; 83880; 84484; 85025; 93005; 96365; G0378; J0696; J7050

== ENCOUNTER 2024-02-22 16:00 | Outpatient (CLI) | payer BC | END 2024-02-22 16:01 | disposition home or self-care (01) | LOC: SLEEPLAB 16:00 | PROVIDERS: ATTEND Family Medicine | DX: G47.33 Obstructive sleep apnea (adult) (pediatric) (principal); I11.0 Hypertensive heart disease with heart failure; I50.9 Heart failure, unspecified; F41.9 Anxiety disorder, unspecified; E66.9 Obesity, unspecified; R06.83 Snoring; R53.83 Other fatigue; Z68.31 Body mass index [BMI] 31.0-31.9, adult | CPT/HCPCS: 95800 ==